=== PATIENT | female | born 1945 | race Caucasian/White ===

== ENCOUNTER 2020-05-24 11:01 | Outpatient (REF) | payer MEDICARE, SELFPAY ==
--- NOTE | 2020-05-24 | MR_ITS ---
EXAMINATION: MR BRAIN WITHOUT CONTRAST CLINICAL INFORMATION: Cortical blindness. Syncope. COMPARISON: None. TECHNIQUE: Multiplanar, multisequence imaging of the brain was performed without contrast. FINDINGS: There are chronic infarcts with laminar necrosis in the right occipital lobe. Mild gliosis and encephalomalacia evident as well. No acute ischemic changes are otherwise seen. There is encephalomalacia along the lateral aspect of the left temporal lobe cortical volume loss. The ventricles are normal in size. No mass effect or midline shift is seen. Mild to moderate chronic white matter microangiopathic changes are noted No extra-axial fluid collections are seen. The brainstem and cerebellum are normal. The gradient refocused acquisition demonstrates no pathologic magnetic susceptibility artifact to indicate underlying acute or chronic blood products. The craniovertebral junction, marrow signal, and midline structures are normal. The major intracranial flow voids at the level of the [place] are preserved. The dural venous sinus flow voids are maintained. The mastoid air cells are well aerated. There is mild mucosal thickening in the right maxillary antrum. MR/MR head/brain wo con IMPRESSION: No acute intracranial process. 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 Encephalomalacia in the lateral left temporal lobe which may be due to chronic infarction or prior traumatic brain injury; clinically correlate. Mild to moderate chronic white matter microangiopathy.
== END 2020-05-24 11:02 | disposition home or self-care (01) ==
LOC: HO.MRI 11:01
PROVIDERS: PCP Internal Medicine; Visit Provider Psychiatry & Neurology Neurology
DX: H47.619 Cortical blindness, unspecified side of brain (principal)
CPT/HCPCS: 70551

== ENCOUNTER → 2020-06-29 12:47 | Outpatient (REF) | payer MEDICARE, SELFPAY ==
--- NOTE | 2020-06-29 12:53 | HM_ITS ---
TEST PERFORMED: Cardiac event monitoring. INDICATION: Cerebral infarction, unspecified. REQUESTING PHYSICIAN: Dr. Chacon. ENROLLMENT PERIOD: 06/29/2020 to 07/29/2020 - 30 days. FINDINGS: In the above monitoring period, the underlying rhythm was sinus. The heart rate ranged from 99 beats per minute to 103 beats per minute. There were no significant arrhythmias noted during this time. There was also no patient symptoms selected. CONCLUSION: 30-day event monitoring shows sinus rhythm only without any other arrhythmias. Suleiman Ye MD HS/JORJE / [id number]
== END ==
LOC: HO.CARD 12:47
PROVIDERS: Visit Provider Psychiatry & Neurology Neurology
DX: I63.50 Cerebral infarction due to unspecified occlusion or stenosis of unspecified cerebral artery (principal)
CPT/HCPCS: 93270; 93272

== ENCOUNTER 2022-03-22 | Outpatient (REF) | payer SELFPAY ==
--- NOTE | 2022-03-27 09:49 | MHC.AU.HFU ---
Hearing Instrument Follow-Up- Binaural Date of Visit: 03/22/22 Right Ear: Phonak Virto Q50-312 HS SN: [id number] Color: [place] Repair Warranty: Loss and Damage Warranty: Battery Size: 312 Type of Wax Guard: None - Extended pipe organ technician tube Dispensed By: [facility] Date of Fittin12/10/2013 Left Ear: Phonak Virto Q50-312 HS SN: [id number] Color: [place] Repair Warranty: Loss and Damage Warranty: Battery Size: 312 Type of Wax Guard: None - Extended pipe organ technician tube Dispensed By: [facility] Date of Fittin12/10/2013 Follow-Up Summary: Ifeoma reported that she is not hearing as well with the hearing aids. Her hearing aids were cleaned and a listening check demonstrated that the hearing aids are in good working order. Discussed new hearing aids; however, Ifeoma opted to have her current hearing aids reprogrammed first. Her hearing aids were reprogrammed based on updated audiogram (see separate report). Ifeoma noted an improvement in office. Recommendations: Hearing instrument maintenance in 6 months, or sooner if needed. Please contact our clinic with any questions or concerns. Recommendations (Other): Consider new hearing aids due to age of current pair. Diagnosis Code(s): Primary Diagnosis: H90.3 Bilateral Sensorineural Hearing Loss Signature: Provider: Malgorzata Stanton, [facility]
== END 2022-03-22 00:01 ==
LOC: HO.HAP
PROVIDERS: Visit Provider Internal Medicine
DX: Z46.1 Encounter for fitting and adjustment of hearing aid (principal); H90.3 Sensorineural hearing loss, bilateral
CPT/HCPCS: 92593

== ENCOUNTER 2022-03-22 15:29 | Outpatient (REF) | payer MEDICARE, SELFPAY | END 2022-03-22 15:30 | disposition home or self-care (01) | LOC: HO.SH 15:29 | PROVIDERS: Visit Provider Internal Medicine | DX: Z01.118 Encounter for examination of ears and hearing with other abnormal findings (principal); H90.3 Sensorineural hearing loss, bilateral | CPT/HCPCS: 92557 ==

== ENCOUNTER 2022-09-08 13:16 | Emergency (ER) | payer MEDICARE, SELFPAY ==
--- NOTE | ~2022-09-08 | US_ITS ---
EXAMINATION: US VENOUS ULTRASOUND WITH DOPPLER LOWER EXTREMITY, LEFT CLINICAL INFORMATION: Pain. COMPARISON: None available. TECHNIQUE: Ultrasound of the deep veins is performed from the hip to the calf with compression sonography and color and pulse Doppler assessment. Spectral analysis with color-flow imaging is performed. FINDINGS: There is normal venous compression and respiratory variation and augmented flow. The visualized common femoral vein, superficial femoral vein, profunda femoral vein, popliteal vein, and the trifurcation region shows no evidence of deep venous thrombosis. Vascular flow in the peroneal vein and posterior tibial vein. There is no significant popliteal fossa cyst. Targeted ultrasound imaging in the area the calf pain demonstrates no focal abnormality. If the patient's symptoms persist, followup ultrasound in 5 days 7 days might be of value to exclude proximal propagation from a non-visualized calf vein. US/US venous duplex LE IMPRESSION: No DVT demonstrated in the left lower extremity.
--- NOTE | 2022-09-08 14:05 | ED_ITS ---
HPI - Extremity Injury (Lower) General Chief Complaint: Extremity Problem <ROBERT Solomon Last Filed: 09/08/22 14:12> Stated Complaint: ultrasound of Lower L Leg on calf <ROBERT Solomon Last Filed: 09/08/22 14:12> Time Seen by Provider: 09/08/22 15:20 <ROBERT Solomon - Last Filed: 09/08/22 14:12> Source: patient <ROBERT Isbell - Last Filed: 09/08/22 16:24> Mode of arrival: ambulatory <ROBERT Isbell Last Filed: 09/08/22 16:24> Limitations: no limitations <ROBERT Isbell Last Filed: 09/08/22 16:24> History of Present Illness HPI Narrative: 77yoF with a PMHx HLD, optical seizures c/o painful lump to L calf noted last night. Takes baby ASA. Flew to [place] in April although flight was less than 6 hours and she had a layover in [place]. denies injury/fall, SOB, hx clots, CP, Paresthesias, leg swelling or any other symptoms complaints or concerns at this time. <ROBERT Isbell Last Filed: 09/08/22 16:24> MD complaint: other ( left leg pain right above the calf near the knee joint) <ROBERT Isbell - Last Filed: 09/08/22 16:24> Onset (ago): day(s) ( since last night) <ROBERT Isbell Last Filed: 09/08/22 16:24> Related Data Home Medications: Previous Rx's Medication Instructions Recorded cyclobenzaprine 10 mg tablet 10 mg PO Q8H #14 tabs 09/08/22 <ROBERT Solomon Last Filed: 09/08/22 14:12> Allergies/Adverse Reactions: Allergies Allergy/AdvReac Type Severity Reaction Status Date / Time cephalexin Allergy Unknown Verified 09/08/22 14:11 chlordiazepoxide Allergy Rash Verified 09/08/22 14:13 [From Librax (with clidinium)] ciprofloxacin [From Cipro] Allergy Unknown Verified 09/08/22 14:12 clidinium Allergy Rash Verified 09/08/22 14:13 [From Librax (with clidinium)] latex Allergy Rash Verified 09/08/22 14:12 Penicillins Allergy Rash Verified 09/08/22 14:14 rofecoxib [From Vioxx] Allergy Unknown Verified 09/08/22 14:14 sulfamethoxazole Allergy Rash Verified 09/08/22 14:08 [From Bactrim] trimethoprim [From Bactrim] Allergy Rash Verified 09/08/22 14:08 midazolam [From Versed] AdvReac Unknown Verified 09/08/22 14:14 <ROBERT Solomon - Last Filed: 09/08/22 14:12> Review of Systems Review of Systems: Constitutional : No Weight loss, No Fever, No Chills, No Night Sweats, No Fatigue, No Malaise ENT/Mouth : No Hearing loss, No Ear Pain, No Nasal Congestion, No Sinus Pain, No Hoarseness, No sore throat, No Rhinorrhea, No Swallowing Difficulty Eyes: No Eye Pain, No Swelling, No Redness, No Foreign Body, No Discharge, No Vision Changes Cardiovascular : No Chest Pain, No SOB, No Dyspnea on Exertion, No Orthopnea, No Edema, No Palpitations Respiratory : No Cough, No Sputum, No Wheezing, No Smoke Exposure, No Dyspnea Gastrointestinal : No Nausea, No Vomiting, No Diarrhea, No Constipation, No abdominal Pain, No Hematochezia, No Melena Genitourinary : no irregular bleeding, No Dysuria, No Urinary Frequency, No Hematuria, No Urinary Incontinence, No Urgency, No Flank Pain, No Urinary Flow Changes, No Hesitancy Musculoskeletal : + left leg pain, No Myalgias, No Joint Swelling Skin : No Skin Lesions, No rash Neuro : No Weakness, No Numbness, No Paresthesias, No Loss of Consciousness, No Dizziness, No Headache Psych : No Anxiety/Panic, No Depression, No SI/HI/AH/VH, No Social Issues, Heme/Lymph: No Bruising, No Bleeding,No Lymphadenopathy Endocrine : No Polyuria, No Polydipsia, No Temperature Intolerance <ROBERT Isbell - Last Filed: 09/08/22 16:24> Yes all other systems are reviewed and are negative <ROBERT Isbell Last Filed: 09/08/22 16:24> ON LICENSE OF [facility] Past Medical History Attestation statement: The following information was validated with the patient. <ROBERT Isbell - Last Filed: 09/08/22 16:24> Source: old records reviewed, obtained from family and nursing notes reviewed <ROBERT Isbell - Last Filed: 09/08/22 16:24> Social History Social History: Social History Advance Directives: No Advance Directives Information Provided: Yes <ROBERT Solomon - Last Filed: 09/08/22 14:12> Physical Exam Vital Signs: Vital Signs: Last Vital Signs Temp 98 F 09/08/22 14:08 Pulse 112 H 09/08/22 14:08 Resp 18 09/08/22 14:08 BP 173/87 H 09/08/22 14:08 Pulse Ox 95 09/08/22 14:08 O2 Del Method Room Air 09/08/22 14:08 BMI result Body Mass Index 31.4 <ROBERT Solomon - Last Filed: 09/08/22 14:12> Vital Signs: Last Vital Signs Temp 98 F 09/08/22 14:08 Pulse 112 H 09/08/22 14:08 Resp 18 09/08/22 14:08 BP 173/87 H 09/08/22 14:08 Pulse Ox 95 09/08/22 14:08 O2 Del Method Room Air 09/08/22 14:08 BMI result Body Mass Index 31.4 Vital signs reviewed. Blood pressure 173/87. Pulse 112. Respiration normal. Oxygen normal. Temperature normal. <ROBERT Isbell - Last Filed: 09/08/22 16:24> Appearance: Alert. Oriented X3. No acute distress. Head: Normal external exam. Normocephalic. Atraumatic. Eyes: PERRLA. EOMI. Conjunctiva and sclera normal. Eyelids normal. ENT: EAC normal. TM's Normal. Pharynx normal. Uvula midline. Moist mucous membranes. No lesions/ulcerations or masses noted on the tongue. Normal voice. No trismus noted. No drooling noted. No muffled voice noted. Neck: Normal inspection. Neck supple. FROM. No adenopathy. Thyroid Normal. No meningeal signs. CVS: Normal heart rate and rhythm. Heart sound normal. Pulses normal throughout. No murmurs/rales/gallops. Respiratory: No respiratory distress. Painless inspiration. Breath sounds normal. No wheezes/rales/rhonchi noted. Chest nontender. No accessory muscle usage noted or decreased air movement noted. Abdomen: Soft and nontender. Back: Full range of motion noted. Nontender. Skin: Skin warm and dry. Normal skin color. Normal skin turgor. No rashes/lesions/lacerations noted. Extremities: patient with mild tenderness palpation to the medial aspect of the left knee/left lower leg right above the calf. No actual calf tenderness is noted. No lumps or lesions noted. No palpable cord. Negative Meng's sign. no lower extremity edema is noted. no erythema / fluctuance/ induration or signs of infection. Otherwise all other Extremities exhibit normal range of motion and nontender. Neuro: Oriented X 3. No motor deficit. No sensory deficit. Reflexes normal. Normal steady gait. No focal neuro deficits noted. CN's II-XII intact bilaterally? Vascular: + radial pulses. Normal cap refill. No cyanosis noted to upper extremity nails <ROBERT Isbell - Last Filed: 09/08/22 16:24> Course Course Course Narrative: RME: 77 yo F w/PMHx HLD, optical seizures c/o painful lump to L calf noted last night. Takes baby ASA. Flew to [place] in April. denies injury/fall, SOB, hx clots +small palpable lump to L calf. +b/l LE pitting edema. no erythema/warmth Venous duplex US ordered Full HPI, ROS and PE to be performed by primary ED provider. <ROBERT Solomon - Last Filed: 09/08/22 14:12> Reevaluation(s) Reevaluation #1: Patient presenting with left lower leg pain behind the knee right above the calf that has been present since last night. Reports recent travel to [place] in April where she had a layover in the flight was less than 6 hours. No history of DVTs. She takes a baby aspirin daily. Denies any chest pain or shortness of breath. no signs of infection. Patient most likely muscular skeletal strain. Not consistent with obvious DVT. Not consistent with septic joint. Not consistent with fracture. Ultrasound negative for any acute processes. Therefore at this time will DC home with instructions return if any new or worsening symptoms follow up with primary care provider. Patient with at bedside understand agree this plan. <ROBERT Isbell Last Filed: 09/08/22 16:24> Time: 16:22 <ROBERT Isbell - Last Filed: 09/08/22 16:24> Medical Decision Making Independent Interpretation I performed an independent interpretation of an: Ultrasound ( Ultrasound reviewed by myself negative for acute DVT or any other acute processes agreeable with radiologist report) <ROBERT Isbell Last Filed: 09/08/22 16:24> Radiology Impression Discussion of test interpretation with radiology: I have reviewed the radiologist's reading. <ROBERT Isbell Last Filed: 09/08/22 16:24> Radiologist Impression: FINDINGS: There is normal venous compression and respiratory variation and augmented flow. The visualized common femoral vein, superficial femoral vein, profunda femoral vein, popliteal vein, and the trifurcation region shows no evidence of deep venous thrombosis. Vascular flow in the peroneal vein and posterior tibial vein. There is no significant popliteal fossa cyst. Targeted ultrasound imaging in the area the calf pain demonstrates no focal abnormality. If the patient's symptoms persist, followup ultrasound in 5 days 7 days might be of value to exclude proximal propagation from a non-visualized calf vein. US/US venous duplex LE LT IMPRESSION: No DVT demonstrated in the left lower extremity. <ROBERT Isbell - Last Filed: 09/08/22 16:24> Independent Historian Clinical information obtained from an independent historian. History obtained from or confirmed by: Spouse <ROBERT Isbell Last Filed: 09/08/22 16:24> Discharge Plan Discharge Clinical Impression: Muscle strain of left lower extremity <ROBERT Solomon Last Filed: 09/08/22 14:12> Patient Disposition: Home, Self-Care <ROBERT Solomon Last Filed: 09/08/22 14:12> Instructions: Muscle Strain (ED) <ROBERT Solomon Last Filed: 09/08/22 14:12> Prescriptions: New cyclobenzaprine 10 mg tablet 10 mg PO Q8H Qty: 14 0RF <ROBERT Solomon Last Filed: 09/08/22 14:12> Referrals: Sterling Templeton III, MD [Primary Care Provider] - 2 days <ROBERT Solomon - Last Filed: 09/08/22 14:12>
[2022-09-08 14:08] VITALS: BP 173/87; PULSE 112; RESP 18; TEMP 36.6; O2SAT 95; BMI 31.4
== END 2022-09-08 16:40 | disposition home or self-care (01) ==
PROVIDERS: Emergency Provider Emergency Medicine; PCP Internal Medicine
DX: S86.912A Strain of unspecified muscle(s) and tendon(s) at lower leg level, left leg, initial encounter (principal); X58.XXXA Exposure to other specified factors, initial encounter; M79.662 Pain in left lower leg; R60.0 Localized edema; Y93.9 Activity, unspecified; Y92.019 Unspecified place in single-family (private) house as the place of occurrence of the external cause; Y99.9 Unspecified external cause status
CPT/HCPCS: 93971; 99282; 99284

== ENCOUNTER 2023-07-06 09:27 | Outpatient (REF) | payer MEDICARE, SELFPAY | END 2023-07-06 09:28 | disposition home or self-care (01) | LOC: HO.SH 09:27 | PROVIDERS: Visit Provider Internal Medicine | DX: H90.3 Sensorineural hearing loss, bilateral (principal) | CPT/HCPCS: 92552; 92556 ==

== ENCOUNTER 2023-10-25 12:56 | Outpatient (REF) | payer SELFPAY ==
--- NOTE | 2023-10-26 08:49 | MHC.AU.HA1 ---
Hearing Aid Evaluation Date of Visit: 10/25/23 Historical Information: Description of Hearing: Right Ear: Within normal sloping to severe sensorineural hearing loss; Left Ear: Moderate sloping to severe sensorineural hearing loss Current personal amplification information: Phonak Virto Q50-312 [employer] fit in November 2013 Summary: Accompanied by , Manuel. Ready to pursue new hearing aids due to age of current pair. Looked into 3[place] insurance benefit but has opted to pursue hearing aids here instead. Knows benefit cannot be utilized here; it will be self-pay and likely not reimbursable. Discussed manufacturers, styles, and technology levels. One of Ifeoma's top priorities for her new hearing aids is rechargeability. Discussed pros and cons of changing manufacturers for custom rechargeable or changing styles to rechargeable RITE to stay with Phonak hearing aids. Ifeoma has used Eddie hearing aids in the past and ultimately opted to trial Eddie rechargeable custom hearing aids. Current hearing aids have extended relief manager tube, unsure why. Ifeoma okay with wax guards on new hearing aids. Ifeoma is still active, attending [employer] and the [employer] and socializing in groups with friends and family. Experiences difficulty hearing in majority of these listening environments and hoping new hearing aids will provide some improvement, while maintaining realistic expectations. Ifeoma also inquired about a TV streamer, which she may want to purchase in future, if needed. Hearing Aid Prescription: Based on the individual?s shared listening needs, communication environments, dexterity, desire for connectivity, and personal preferences, the following prescription for amplification has been made: Right ear: Make, Model, Color: InPlace AI 16 ITC-R Color: [place] Battery Size: Rechargeable Left ear: Left ear prescription to be same as Right Hearing Aid above: Make, Model, Color: InPlace AI 16 ITC-R Color: [place] Battery Size: Rechargeable Accessories/Assistive Technology: Credit Control Officer Plan of Care: Patient wishes to purchase hearing aids as prescribed Action Taken/Action Needed: Hearing Instrument Fitting to be scheduled when materials arrive Primary Diagnosis: H90.3 Bilateral Sensorineural Hearing Loss Signature: Provider: Malgorzata Stanton, [facility]
== END 2023-10-25 12:57 | disposition home or self-care (01) ==
LOC: HO.HAP 12:56
PROVIDERS: Visit Provider Internal Medicine
DX: Z46.1 Encounter for fitting and adjustment of hearing aid (principal); H90.3 Sensorineural hearing loss, bilateral
CPT/HCPCS: 92590

== ENCOUNTER 2024-01-17 12:44 | Outpatient (REF) | payer SELFPAY ==
--- NOTE | 2024-01-17 13:42 | MHC.AU.HA2 ---
Hearing Instrument Fitting- Adult- Binaural Date of Visit: 01/17/24 Hearing Instruments Dispensed: Right Ear: Make, Model, Color, Serial Number: Eddie RANGEL 16 ITC-R SN: [id number] Color: [place] [employer]anner Repair Warranty: 01/22/2027 Business Planner Loss and Damage Warranty: 01/22/2027 [facility] Service Plan: 01/17/2024 Battery Size: Rechargeable Type of Wax Guard: HearClear Left Ear: Wayne, Model, Color, Serial Number: Eddie RANGEL 16 ITC-R [id number] Color: [place] [employer] Planner Repair Warranty: 01/22/2027 Business Planner Loss and Damage Warranty: 01/22/2027 [facility] Service Plan: 01/17/2024 Battery Size: Rechargeable Type of Wax Guard: HearClear Accessories/Assistive Technology: [employer] Custom Library Science Instructor SN: [id number] Summary of Fitting: Accompanied by , Manuel. Ran feedback analyzer and real ear measures. Comfortable at real ear settings. New hearing aids louder and clearer than old hearing aids. Physical fit felt bigger/calderon in ears but reportedly did not move out of ears while talking or with jaw movement - will monitor. Discussed care, use, and rechargeability including manually turning on/off, changing wax guard, and VC use. As a long-time hearing aid user, Ifeoma was otherwise familiar to general maintenance. Did not discuss bluetooth at this time. *Briefly discussed new Phonak rechargeable customs given discussion at consult (see previous note); however, not available to order yet. Ifeoma opted to move forward with fitting, at least to trial the Eddie hearing aids but would like to be contacted when Phonak custom rechargeables are available. Recommendations: A hearing instrument follow-up was scheduled. Diagnosis Code(s): Primary Diagnosis: H90.3 Bilateral Sensorineural Hearing Loss Signature: Provider: Malgorzata Stanton, [facility]
== END 2024-01-17 12:45 | disposition home or self-care (01) ==
LOC: HO.HAP 12:44
PROVIDERS: Visit Provider Internal Medicine
DX: Z46.1 Encounter for fitting and adjustment of hearing aid (principal); H90.3 Sensorineural hearing loss, bilateral
CPT/HCPCS: 92700; V5259; V5299

== ENCOUNTER 2024-02-05 14:03 | Outpatient (REF) | payer SELFPAY ==
--- NOTE | 2024-02-05 16:43 | MHC.AU.HA3 ---
Hearing Instrument Follow-Up- Binaural Date of Visit: 02/05/24 Right Ear: Make, Model, Color, Serial Number: Eddie RANGEL 16 ITC-R SN: [id number] Color: [place] Bag Machine Operator Repair Warranty: 01/22/2027 Bag Machine Operator Loss and Damage Warranty: 01/22/2027 [facility] Service Plan: 01/17/2024 Battery Size: Rechargeable Type of Wax Guard: HearClear Dispensed By: [facility] Date of Fittin01/17/2024 Left Ear: Make, Model, Color, Serial Number: Eddie RANGEL 16 ITC-R [id number] Color: [place] Bag Machine Operator Repair Warranty: 01/22/2027 Bag Machine Operator Loss and Damage Warranty: 01/22/2027 [facility] Service Plan: 01/17/2024 Battery Size: Rechargeable Type of Wax Guard: HearClear Dispensed By: [facility] Date of Fittin01/17/2024 Follow-Up Summary: Accompanied by , Manuel. Multiple concerns with new HAs. 1. Too loose, constantly falling out, need to push back in. Right worse than left. 2. Sound quality muffled; No improvement compared to old HAs, particularly in catholic. reports needing to repeat more often with new HAs. Ifeoma expected it to be better. 3. Attempted to change wax guard, assuming it would help with muffled sound quality but mistakenly put wax guards in microphone ports, which she noted made sound worse. Impressions taken, bilaterally, without incident. Sent to [facility] with HAs for remake. Will address programming/rerun real ear and reinstruct on changing wax guards at next appointment when HAs are back from being remade. Called [facility] customer service to try to extend trial/return period. Per Tian, customer service consultant, currently ends on 03/23/2024, need to request extension through accounts payables clerk. Emailed Venancio Kirk at [facility] to request extension of trial period. Recommendations: Patient will be contacted when materials have arrived. Diagnosis Code(s): Primary Diagnosis: H90.3 Bilateral Sensorineural Hearing Loss Signature: Provider: Malgorzata Stanton, [facility]
== END 2024-02-05 14:04 | disposition home or self-care (01) ==
LOC: HO.HAP 14:03
PROVIDERS: Visit Provider Internal Medicine
DX: Z13.89 Encounter for screening for other disorder (principal)

== ENCOUNTER 2024-02-19 15:28 | Outpatient (REF) | payer SELFPAY | END 2024-02-19 15:29 | disposition home or self-care (01) | LOC: HO.HAP 15:28 | PROVIDERS: Visit Provider Internal Medicine | DX: Z13.89 Encounter for screening for other disorder (principal) ==

== ENCOUNTER 2024-03-04 14:03 | Outpatient (REF) | payer SELFPAY ==
--- NOTE | 2024-03-04 16:07 | MHC.AU.HA3 ---
Hearing Instrument Follow-Up- Binaural Date of Visit: 03/04/24 Right Ear: Wayne, Model, Color, Serial Number: Eddie RANGEL 16 ITC-R SN: [id number] Color: [place] Oyster Opener Repair Warranty: 01/22/2027 Oyster Opener Loss and Damage Warranty: 01/22/2027 [facility] Service Plan: 01/16/2027 Battery Size: Rechargeable Type of Wax Guard: HearClear Dispensed By: [facility] Date of Fittin01/17/2024 Left Ear: Wayne, Model, Color, Serial Number: Eddie RANGEL 16 ITC-R [id number] Color: [place] Oyster Opener Repair Warranty: 01/22/2027 [place]yster Opener Loss and Damage Warranty: 01/22/2027 [facility] Service Plan: 01/16/2027 Battery Size: Rechargeable Type of Wax Guard: HearClear Dispensed By: [facility] Date of Fittin01/17/2024 Follow-Up Summary: Accompanied by , Manuel. Physical fit better after remake; however, still does not notice significant benefit compared to old HAs. Performed aided speech discrimination in [place] at 55 dB HL, scored 80% with new Eddie HAs, 88% with old Phonak HAs. Seemed much quicker to respond with Phonak, felt more confident in responses. Ran real ear on old Phonak HAs compared to new Eddie HAs - frequency responses almost identical. Increased high frequencies and overall gain in Eddie HAs, more so in left, at Ifeoma's request. Opted to schedule one additional follow up, will make decision about how to proceed at next appointment. Previous email with Venancio Kirk at [facility] extended trial period until 04/22/2024. Recommendations: An additional follow-up was scheduled to monitor progress. Diagnosis Code(s): Primary Diagnosis: H90.3 Bilateral Sensorineural Hearing Loss Signature: Provider: Malgorzata Stanton, [facility]
== END 2024-03-04 14:04 | disposition home or self-care (01) ==
LOC: HO.HAP 14:03
PROVIDERS: Visit Provider Internal Medicine
DX: Z13.89 Encounter for screening for other disorder (principal)

== ENCOUNTER 2024-04-01 14:27 | Outpatient (REF) | payer SELFPAY ==
--- OUTSIDE RECORDS SUMMARY | 2024-04-08 14:56 | XMS_ITS ---
Author Organization [facility] Address [address] [facility] [place] [address] Care Team Providers Care Post Doctoral Researcher Name Role Phone Chip Templeton MD Primary Care Provider Unavailabl e Black, Juliette Unavailable [phone] Allergies Allergen (clinical drug ingredient) Drug/Non Drug Allergy documented on EMR Reaction Allergy Type Onset Date Status amoxicillin Amoxicillin diarrhea Drug Allergy Act julissa sulfamethoxazole / trimethoprim Bactrim diarrhea Drug Allergy Active cephalexin Cephalexin diarrhea Drug Allergy Activ e ciprofloxacin Cipro diarrhea Drug Allergy Act julissa Levaquin diarrhea Drug Allergy Active Fxedr-Vqoim-Pfvms yx-Pramoxine swelling Drug Allergy Active Midazolam Unknown Drug Allergy Active Adhesive itchy, redness Allergy Activ e Latex Latex itchy, redness Allergy Activ e REASON FOR VISIT Painful nail(s) aggrevated by shoes and causing difficulty standing/walking., Wart(s) Medications Medication SIG (Take, Route, Frequency, Duration) Notes Start Date End Date Status Topiramate 25 MG 1 tablet Orally Once a day for 30 day(s) Not-Taking Noritate Not-Taking Luxiq Not-Taking Li Allergy Not- Taking Flomax Not-Taking Baby Aspirin Active Dovonex PRN Active Multivitamins as directed Orally Active MiraLax PRN Active ZyrTEC Allergy PRN Activ e Losartan Potassium 25 MG 1 tablet Orally Once a day Active Cyclobenzaprine HCl 10 MG 1 tablet at be dtime as needed Orally Once a day PRN Active Atorvastatin Calcium 10 MG 1 tablet Oral ly Once a day for 30 day(s) Active Social History Tobacco Use: Social History Observation Description Date Details (start date - stop date) Never Smoker NA - NA Tobacco Use/Smoking Question Answer Notes Are you a: nonsmoker Additional Findings: Tobacco Non-User Current no n-smoker Tobacco use other than smoking: Question Answer Notes Are you an other tobacco user? No Vital Signs Height 5ft in 01/21/2024 Weight 175 lbs 01/21/2024 BMI 34.17 kg/m2 01/21/2024 Blood pressure systolic 129 mm Hg 01/21/20 24 Blood pressure diastolic 66 mm Hg 024 Procedures Procedure Date Ordered Date Performed Result Body Sit e 46794-OIHGGTS NAIL, 6 OR MORE 01/21/2024 N/A 18791-Iyiu Destruction, 1-14 01/21/2024 N/A Encounters Encounter Location Date Provider Diagnosis [facility] [address] [address] 01/21/2024 Juliette Welsh Other viral warts B07.8 ; Tinea unguium B35.1 ; Pain in left foot M79.672 ; Pain in right toe(s) M79.674 and Pain in left toe(s) M79.675 Assessments Encounter Date Diagnosis (ICD Code) Assessment Notes Treatment Notes Treatment Clinical Notes Section Notes 01/21/2024 Other viral warts (ICD-10 - B07.8) 01/21/2024 Tinea unguium (ICD-10 - B35.1) 01/21/2024 Pain in left foot (ICD-10 - M79.672) 01/21/2024 Pain in right toe(s) (ICD-10 - M79.674) 01/21/2024 Pain in left toe(s) (ICD-10 - M79.675) Plan Of Treatment Pending Test Test Name Order Date [id number]-KABMGEA NAIL, 6 OR MORE 01/21/2024 63154-Eevg Destruction, 1-14 01/21/2024 Next Appt Details Follow Up: prn, Reason: Provider Name:Juliette De Oliveira Blaise , 05/05/2024 03:45:00 PM, [address] [place] [address], [id number], Procedure Notes * Category Sub-Category Detail Notes Wart Treatment Procedure Verrucae(s) were debrided to pin-point bleeding margins with sterile surgical blade, silver nitrate chemocautery applied, recomm. immune-boosting meds such as zinc, recomm. follow up with topical chemosurgical agents, Pt STILL CONT, defers any other forms of tx (95217) Debride Nail 6-10 Nail debridement Nail debridem ent performed extensively to reduce/remove overall nail length and girth, subungual debris, and necrotic tissue, by manual and electrical means with use of a nail nipper and/or dremel, to more viable healthy nail plate or bed tissue 6-10. Silver nitrate used for any petechial bleeding as necessary. Patient STILL, chooses, no pharmaceutical tx (78822) Progress Notes * Ifeoma GA MDOB:1944 (78 yo F)Acc No.[id number]:01/21/2024 Progress Note Patient:?Ifeoma Ga M Provider:?Juliette Welsh DPM :1945???Age:78 Y???Sex:Female D ate:01/21/2024 Address:[address] [place] [address], [id number] Pcp:Chip Templeton MD Subjective: * Chief Complaints: * ??? Painful nail(s) aggrevat ed by shoes and causing difficulty standing/walking.Wart(s) * HPI: ???Painful Nails:?Pt States Last PCP Visit:?Date:?10/05/2023 ???Wart:?Pt States Last PCP Visit:?Date:?10/05/2023 * Medical History:? * Surgical History:?foot surge ry gall stones hemorrhoidectomy 2004tonsillectomy eye tearduct surgery 01/2016eye surgery 01/2018 * Hospitalization/Major Diagno stic Procedure:?Patient went to [facility] ER for chest pain[facility] 04/27/2014[facility]- Passed out and hit head on floor- concusion- neurologist- several strokes 04/12/2020[facility]- lump behind leg 09/08/22 * Family History:?Mother: dece ased, poor circulation, diagnosed with Other specified conditions influencing health status.?Father: , heart attack, diagnosed with Unspecified heart disease.?Paternal aunt: diabetes, stroke, diagnosed with Diabetic - NIDDM, Unspecified heart disease.?Siblings: , hypertension, diagnosed with Unspecified essential hypertension, Other malignant neoplasm of unspecified site.?Paternal Grand Mother: diagnosed with Family history of arthritis.? * Social History:?Tobacco Use:?Tobacco Use/Smoking?Are you a:?nonsmoker ?Additional Findings: Tobacco Non-User?Current non-smoker ?Tobacco use other than smoking?Are you an other tobacco user??No ???Miscellaneous:?no Caffeine, decaff coffee, diet soda , 1-2 cups per day. ?Children: yes, 3. ?Exercise: yes, PT, walking. ?Marital status: . ?Occupation: Retired. * Medications:?TakingLosartan Potassium 25 MG Tablet 1 tablet Orally Once a dayCyclobenzaprine HCl 10 MG Tablet 1 tablet at bedtime as needed Orally Once a day, Notes: PRNAtorvastatin Calcium 10 MG Tablet 1 tablet Orally Once a dayBaby Aspirin Dovonex , Notes: PRNMultivitamins Capsule as directed Orally MiraLax , Notes: PRNZyrTEC Allergy , Notes: PRNTaking Losartan Potassium 25 MG Tablet 1 tablet Orally Once a dayTaking Cyclobenzaprine HCl 10 MG Tablet 1 tablet at bedtime as needed Orally Once a day, Notes: PRNTaking Atorvastatin Calcium 10 MG Tablet 1 tablet Orally Once a dayTaking Baby Aspirin Taking Dovonex , Notes: PRNTaking Multivitamins Capsule as directed Orally Taking MiraLax , Notes: PRNTaking ZyrTEC Allergy , Notes: PRNNot-Taking/PRNTopiramate 25 MG Tablet 1 tablet Orally Once a dayNoritate Luxiq Li Allergy Flomax Medication List reviewed and reconciled with the patientNot-Taking/PRN Topiramate 25 MG Tablet 1 tablet Orally Once a dayNot-Taking/PRN Noritate Not-Taking/PRN Luxiq Not-Taking/PRN Li Allergy Not-Taking/PRN Flomax Medication List reviewed and reconciled with the patient * Allergies:?Cephalexin: diarr heaCipro: diarrheaLevaquin: vxhtmjpkJzzpxgwscYeqxz-Syxpa-Cgjrapl-Pramoxine: swellingBactrim: diarrheaAmoxicillin: diarrheaAdhesive: itchy, redness - AllergyLatex: itchy, redness - Allergyyes[Allergies Verified] Objective: * Vitals:?Ht: 5ft, Wt: 175, BM I: 34.17, Shoe size: 6.5W, BP: 129/66 mm Hg, Ht-cm: 152.4 cm, Wt-k.38 kg. * Examination: ???Dermatologic: ?VERRUCA:?two, round, raised, flat-topped, petechial bleeding papulae(s), with cauliflower appearance and interrruption of skin lines, with pain to both direct and lateral compression, and size estimated at 1-2mm, plantar Heel, LEFT.?Nails: ?NAILS are:?elongated,overgrown,dystrophic,greater than 3mm thick,discolored and friable with crumbly malodorous subungual debris, with pain on palpation, 1-5 B/L.? Assessment: * Assessment: 1.?Other viral warts - B07.8 (Primary)?2.?Tinea unguium - B35.1?3.?Pain in left foot - M79.672?4.?Pain in right toe(s) - M79.674?5.?Pain in left toe(s) - M79.675? Plan: * Treatment: 2.?Tinea unguium?Procedure: 17663-LHMXJYP NAIL, 6 OR MORE * Procedures:?Debride Nail 6-10:?Nail debridement?Nail debridement performed extensively to reduce/remove overall nail length and girth, subungual debris, and necrotic tissue, by manual and electrical means with use of a nail nipper and/or dremel, to more viable healthy nail plate or bed tissue 6-10. Silver nitrate used for any petechial bleeding as necessary. Patient STILL, chooses, no pharmaceutical tx (61341).?Wart Treatment:?Procedure?Verrucae(s) were debrided to pin-point bleeding margins with sterile surgical blade, silver nitrate chemocautery applied, recomm. immune-boosting meds such as zinc, recomm. follow up with topical chemosurgical agents, Pt STILL CONT, defers any other forms of tx (64991).? * Procedure Codes:?32980 DEBRI DE NAIL, 6 OR MORE, Modifiers: XS 99865 Wart Destruction, 1-14, Modifiers: XS * Follow Up:?prn * Images: * Sign off status: Completed true * Provider:?Julitete Welsh DPM Date:?2023 Generated for Rosy morel/Nevaeh/eTransmitting on:?04/08/2024 02:56 PM EST History and Physical Notes * HPI (History of Present Illness) Category Sub-Category Detail Notes Category Not es Painful Nails Pt States Last PCP Visit: Date:: 10/05/2023 Wart Pt States Last PCP Visit: Date:: 10/05/2023 Examination Category Sub-Category Detail Notes Category Not es Neurological SENSORY: BABINSKI REFLEX: TINEL'S COMPRESSION: DEEP TENDON REFLEXES: Dermatologic SKIN FINDINGS: ULCER: VERRUCA: two, round, raised, flat-topped, petechial bleeding papulae(s), with cauliflower appearance and interrruption of skin lines, with pain to both direct and lateral compression, and size estimated at 1-2mm, plantar Heel, LEFT Nails NAILS are: elongated,overgr own,dystrophic,greater than 3mm thick,discolored and friable with crumbly malodorous subungual debris, with pain on palpation, 1-5 B/L
--- OUTSIDE RECORDS SUMMARY | 2024-04-08 14:56 | XMS_ITS ---
Author Organization [facility] Address [address] [facility] [place] [address] Care Team Providers Care Nnps Name Role Phone Chip Templeton MD Primary Care Provider Unavailabl e Black, Juliette Unavailable [phone] Allergies Allergen (clinical drug ingredient) Drug/Non Drug Allergy documented on EMR Reaction Allergy Type Onset Date Status amoxicillin Amoxicillin diarrhea Drug Allergy Act julissa sulfamethoxazole / trimethoprim Bactrim diarrhea Drug Allergy Active cephalexin Cephalexin diarrhea Drug Allergy Activ e ciprofloxacin Cipro diarrhea Drug Allergy Act julissa Levaquin diarrhea Drug Allergy Active Dmnou-Yqucu-Qielc yx-Pramoxine swelling Drug Allergy Active Midazolam Unknown Drug Allergy Active Adhesive itchy, redness Allergy Activ e Latex Latex itchy, redness Allergy Activ e REASON FOR VISIT Heel pain, Painful nail(s) aggrevated by shoes and causing difficulty standing/walking., Wart(s) Medications Medication SIG (Take, Route, Frequency, Duration) Notes Start Date End Date Status Topiramate 25 MG 1 tablet Orally Once a day for 30 day(s) Not-Taking Luxiq Not-Taking Noritate Not-Taking Flomax Not-Taking Li Allergy Not- Taking ZyrTEC Allergy PRN Activ e MiraLax PRN Active Multivitamins as directed Orally Active Dovonex PRN Active Baby Aspirin Active Cyclobenzaprine HCl 10 MG 1 tablet [...] Additional Findings: Tobacco Non-User Current no n-smoker Alcohol Screen Question Answer Notes Did you have a drink containing alcohol in the p ast year? No Points 0 Interpretation Negative Tobacco use other than smoking: Question Answer Notes Are you an other tobacco user? No Vital Signs Height 5ft in 06/28/2023 Weight 170 lbs 06/28/2023 BMI 33.2 kg/m2 06/28/2023 Blood pressure systolic 121 mm Hg 06/28/19 24 Blood pressure diastolic 60 mm Hg 024 Procedures Procedure Date Ordered Date Performed Result Body Sit e 90507-VIKEQAL NAIL, 6 OR MORE 06/28/2023 N/A 74501-Blun Destruction, 1-14 06/28/2023 N/A Encounters Encounter Location Date Provider Diagnosis [facility] [address] [place] [address] 06/28/2023 Juliette Black Other viral warts B07.8 ; Plantar fascial fibromatosis M72.2 ; Tinea unguium B35.1 ; Pain in left foot M79.672 ; Pain in right toe(s) M79.674 ; Pain in left toe(s) M79.675 ; Other myositis, right ankle and foot M60.871 and Other bursitis, not elsewhere classified, right ankle and foot M71.571 Assessments Encounter Date Diagnosis (ICD Code) Assessment Notes Treatment Notes Treatment Clinical Notes Section Notes 06/28/2023 Other viral warts (ICD-10 - B07.8) 06/28/2023 Plantar fascial fibromatosis (ICD-10 - M72.2) Response to treatment - Improvement 06/28/2023 Tinea unguium (ICD-10 - B35.1) 06/28/2023 Pain in left foot (ICD-10 - M79.672) 06/28/2023 Pain in right toe(s) (ICD-10 - M79.674) 06/28/2023 Pain in left toe(s) (ICD-10 - M79.675) 06/28/2023 Other myositis, right ankle and foot (ICD-10 - M60.871) 06/28/2023 Other bursitis, not elsewhere classified, right ankle and foot (ICD-10 - M71.571) Plan Of Treatment Pending Test Test Name Order Date 16341-WGUQOES NAIL, 6 OR MORE 06/28/2023 92085-Pavx Destruction, 1-14 06/28/2023 Next Appt Details Follow Up: prn, Reason: Provider Name:Juliette Welsh , 05/05/2024 03:45:00 PM, [address] [place], [address], Procedure Notes * Category Sub-Category Detail Notes Wart Treatment Procedure Verrucae(s) were debrided to pin-point bleeding margins with sterile surgical blade, silver nitrate chemocautery applied, recomm. immune-boosting meds such as zinc, recomm. follow up with topical chemosurgical agents, Pt STILL defers any other forms of tx (09886) Debride Nail 6-10 Nail debridement Nail debridem ent performed extensively to reduce/remove overall nail length and girth, subungual debris, and necrotic tissue, by manual and electrical means with use of a nail nipper and/or dremel, to more viable healthy nail plate or bed tissue 6-10. Silver nitrate used for any petechial bleeding as necessary. Patient chooses, no pharmaceutical tx (22181) Progress Notes * Ifeoma GA MDOB:1944 (78 yo F)Acc No.[id number]:06/28/2023 Progress Note Patient:?Ifeoma Ga M Provider:?Juliette WelshTONA :1945???Age:78 Y???Sex:Female D ate:06/28/2023 Address:[address] [place] [address] [id number] Pcp:Chip Templeton MD Subjective: * Chief Complaints: * ???Heel pain Painful nail(s) aggrevated by shoes and causing difficulty standing/walking.Wart(s) * HPI: ???Painful Nails:?Pt States Last PCP Visit:?Date:?04/02/2023 ???Wart:?Pt States Last PCP Visit:?Date:?04/02/2023 ???Heel pain:?Nature:?stiffness, tenderness.?Location:?RIGHT.?Duration:?several months .?Onset/Cause:?unknown, denies trauma.?Course:?, at approximately 60 %.?Aggrevated:?walking first thing in the morning/after rest, worse at end of the day.?Treatments:?medication (MOTRIN_ ) rest,night splint , stretching , physical therapy , Pt relates non compliance with recommended treatment plan of supportive shoes.?Severity/Quality:?moderate.? * ROS:?General/Constitutional:?Nausea?denies.?Vomiting?denies.?Hunger Thirst?denies.?Loss appetite?denies.?Chills?denies.?Fatigue?denies.?Fever?denies.?Night Sweats?denies.?Unexplained weight loss?denies.?Ophthalmologic:?Blurred vision?denies.?Red eye?denies.?HEENTM:?Dentures?denies.?Dizziness?denies.?Glasses/contacts?admits.?Retinopathy?de nies.?Blurred/double vision?denies.?TMJ?denies.?Discharge/drainage?denies.?Implants?denies.?Hard of hearing denies.?Difficulty chewing/swallowing/speaking?denies.?Nose bleeds?denies.?Sore mouth?denies.?Swollen glands?denies.?Respiratory:?On Oxygen?denies.?Pneumonia/pleurisy?denies.?Bronchitis?denies.?Emphysema?denies.?C oughing?denies.?Cough blood?denies.?Shortness of breath?denies.?Wheezing?denies.?Cardiovascular:?Pacemaker?denies.?MVP?denies.?WPW?denies.?CHF?denies.?Heart attack?denies.?Septal defect?denies.?Rapid beat?denies.?Chest pain ?denies.?Atrial Fib.?denies.?Murmur/Palpitations?denies.?Gastrointestinal:?Hemorrhoids?denies.?Stomach/Abdominal pain?denies.?Dark blood stool?denies.?Irritable bowel ?denies.?Constipation?denies.?Diarrhea?denies.?Vomiting?denies.?Hematology:?Swelling?denies.?Bruising?denies.?Bleeding problem?denies.?Genitourinary:?Blood urine?denies.?Frequent/Painfu/urination/bladder control?denies.?Kidney stones?denies.?Infection (UTI)?denies.?Nephropathy?denies.?Musculoskeletal:?Hammertoes?denies.?Bunions?denies.?Scoliosis/kyphosis?denies.?Muscle cramps / walking?denies.?Generalized aches and pains?admits.?Weakness?denies.?Integ.:?Dave?denies.?Scars?denies.?Corns/calluses?admits.?Ingrown nails?admits.?Painful nails?denies.?Rashes?denies.?Neurologic:?Difficulty sleeping?denies.?Bipolar?denies.?Brain disorder?denies.?Balance trouble?denies.?Confusion?denies.?Fainting/blackouts?denies.?Headache?denies.?Tr emors?denies.? * Medical History:? * Surgical History:?foot surge ry gall stones hemorrhoidectomy 2004tonsillectomy eye tearduct surgery 01/2016eye surgery 01/2018 * Hospitalization/Major Diagno stic Procedure:?Patient went to [facility] ER for chest pain. 04/27/2014[facility]- Passed out and hit head on floor- concusion- neurologist- several strokes 04/12/2020[facility]- lump behind leg 09/08/22 * Family [...] than smoking?Are you an other tobacco user??No ???Drugs/Alcohol:?Drugs?Have you used drugs other than those for medical reasons in the past 12 months??No ?Alcohol Screen?Did you have a drink containing alcohol in the past year??No ?Points?0 ?Interpretation?Negative ???Miscellaneous:?no Caffeine, decaff coffee, diet soda , 1-2 cups per day. ?Children: yes, 3. ?no Exercise. ?Marital status: . ?Occupation: Retired. * Medications:?TakingCyclobenz aprine HCl 10 MG Tablet 1 tablet at bedtime as needed Orally Once a day, Notes: PRNAtorvastatin Calcium 10 MG Tablet 1 tablet Orally Once a dayBaby Aspirin Dovonex , Notes: PRNMultivitamins Capsule as directed Orally MiraLax , Notes: PRNZyrTEC Allergy , Notes: PRNTaking Cyclobenzaprine HCl 10 MG Tablet 1 tablet [...] the patient * Allergies:?Cephalexin: diarr heaCipro: diarrheaLevaquin: giongtzxOvcsxnrvgShqkv-Ewfoz-Vwshfjl-Pramoxine: swellingBactrim: diarrheaAmoxicillin: diarrheaAdhesive: itchy, redness - AllergyLatex: itchy, redness - Allergyyes[Allergies Verified] Objective: * Vitals:?Ht: 5ft, Wt: 170, BM I: 33.2, Shoe size: 6.5W, BP: 121/60 mm Hg, Ht-cm: 152.4 cm, Wt-k.11 kg. * Examination: ???Vascular: ?DP PULSES:?2/4, B/L.?PT PULSES:?2/4, B/L.?CAPILLARY FILL TIME:?3 secs. per digit, B/L.?Dermatologic: ?SKIN FINDINGS:?, Skin exam reveals normal texture, elasticity, and tugor. There are no masses. The interspaces are clear.?VERRUCA:?single , round, raised, flat-topped, petechial bleeding papulae(s), with cauliflower appearance and interrruption of skin lines, with pain to both direct and lateral compression, and size estimated at 2mm, plantar Heel, LEFT.?Heel Pain: ?INSPECTION REVEALS:?POP Plantar Fascia med. and central bands, intrinsic musc., infracalcaneal bursa, and med calc tubercle . No pain: posterior/superior heel, achilles bursa/tendon, sinus tarsi, peroneals; no limited STJ ROM, calor, or eccymosis. Pain on Heel Compression absent RIGHT foot , States approximately 60% LESS.?Nails: ?NAILS are:?elongated,overgrown,dystrophic,greater than 3mm thick,discolored and friable with crumbly malodorous subungual debris, with pain on palpation, 1-5 B/L.? 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 Plan: * Treatment: 2.?Tinea unguium?Procedure: 37304-JQGDNYK NAIL, 6 OR MORE * Procedures:?Debride Nail 6-10:?Nail debridement?Nail debridement performed extensively to reduce/remove overall nail length and girth, subungual debris, and necrotic tissue, by manual and electrical means with use of a nail nipper and/or dremel, to more viable healthy nail plate or bed tissue 6-10. Silver nitrate used for any petechial bleeding as necessary. Patient chooses, no pharmaceutical tx (31333).?Wart Treatment:?Procedure?Verrucae(s) were debrided to pin-point bleeding margins with sterile surgical blade, silver nitrate chemocautery applied, recomm. immune-boosting meds such as zinc, recomm. follow up with topical chemosurgical agents, Pt STILL defers any other forms of tx (37338).? * Procedure Codes:?42355 DEBRI DE NAIL, 6 OR MORE, Modifiers: XS 96727 Wart Destruction, 1-14, Modifiers: XS * Preventive Medicine:? ??Counseling:?Discussion:?-12: Office or other outpatient visit for the evaluation and management of an established patient, which required a medically appropriate history and/or examination and STRAIGHTFORWARD level of MEDICAL DECISION MAKING, 1 SELF-LIMITED OR MINOR PROBLEM, MINIMAL- NO AMOUNT/COMPLEXITY OF DATA TO BE REVIEWED/ANALYZED, AND MINIMAL RISK OF COMPLICATION/MORBIDITY. The visit on the day of the encounter encompassed interpreting the data and educating the patient as to the nature of their condition, treatment options available according to their individual PMH, meds, allergies, and overall health/living conditions, as well as any potential risks or complications that may occur from a failure to adhere to, and participate in, the recommended course of therapy. The discussion included a complete verbal, and/or written explanation of the examination results, any x-rays taken, the proposed diagnosis, and outline of the treatment plan. A schedule for future care needs was also explained. The patient verbalized an understanding of the instructions at this time and agreed to be an active participant in their treatment. If the patient should think of any questions or concerns after the visit, I have encouraged the patient to call the office, Given recent successful results to treatment, even with pt not being completely complaint it is recomm. That is continued with more effort on compliance with foot wear.The patient wishes to continue with the present treatment plan for their condition.? * Follow Up:?prn * Images: * Sign off status: Completed true * Provider:?Juliette Welsh DPM Date:?2023 Generated for Rosy morel/Nevaeh/Shay on:?04/08/2024 02:56 PM EST History and Physical Notes * HPI (History of Present Illness) Category Sub-Category Detail Notes Category Not es Heel pain Duration: several months Nature: stiffness, tendernes s Severity/Quality: moderate Location: RIGHT Onset/Cause: unknown, denies trau ma Aggravated: walking first thing in the morning/after rest, worse at end of the day Course: , at approximately 6 0 % Treatments: medication (MOTRIN_ ) rest,night splint , stretching , physical therapy , Pt relates non compliance with recommended treatment plan of supportive shoes Painful Nails Pt States Last PCP Visit: Date:: 04/02/2023 Wart Pt States Last PCP Visit: Date:: 04/02/2023 Examination Category Sub-Category Detail Notes Category Not es Heel Pain INSPECTION REVEALS: POP Plantar Fascia med. and central bands, intrinsic musc., infracalcaneal bursa, and med calc tubercle . No pain: posterior/superior heel, achilles bursa/tendon, sinus tarsi, peroneals; no limited STJ ROM, calor, or eccymosis. Pain on Heel Compression absent RIGHT foot , States approximately 60% LESS Neurological SENSORY: BABINSKI REFLEX: TINEL'S COMPRESSION: DEEP TENDON REFLEXES: Dermatologic SKIN FINDINGS: , Skin exam reve als normal texture, elasticity, and tugor. There are no masses. The interspaces are clear ULCER: VERRUCA: single , round, rais ed, flat-topped, petechial bleeding papulae(s), with cauliflower appearance and interrruption of skin lines, with pain to both direct and lateral compression, and size estimated at 2mm, plantar Heel, LEFT Vascular DP PULSES(B): 2/4, B/L PT PULSES(B): 2/4, B/L CAPILLARY FILL TIME: 3 secs. per digit, B/L Nails NAILS are: elongated,overgr own,dystrophic,greater than 3mm thick,discolored and friable with crumbly malodorous subungual debris, with pain on palpation, 1-5 B/L
--- OUTSIDE RECORDS SUMMARY | 2024-04-08 14:56 | XMS_ITS ---
Author Organization [facility] Address [address] [address] Care Team Providers Care Habitat Biologist Name Role Phone Chip Templeton MD Primary Care Provider Unavailabl e Black, Juliette Unavailable [phone] Allergies Allergen (clinical drug ingredient) Drug/Non Drug Allergy documented on EMR Reaction Allergy Type Onset Date Status amoxicillin Amoxicillin diarrhea Drug Allergy Act julissa sulfamethoxazole / trimethoprim Bactrim diarrhea Drug Allergy Active cephalexin Cephalexin diarrhea Drug Allergy Activ e ciprofloxacin Cipro diarrhea Drug Allergy Act julissa Levaquin diarrhea Drug Allergy Active Yknti-Pqzsz-Qprvj yx-Pramoxine swelling Drug Allergy Active Midazolam Unknown Drug Allergy Active Adhesive itchy, redness Allergy Activ e Latex Latex itchy, redness Allergy Activ e REASON FOR VISIT Heel pain, Painful nail(s) aggrevated by shoes and causing difficulty standing/walking., Wart(s), Swelling Medications Medication SIG (Take, Route, Frequency, Duration) Notes Start Date End Date Status Dovonex PRN Active Multivitamins as directed Orally Active Atorvastatin Calcium 10 MG 1 tablet Oral ly Once a day for 30 day(s) Active Baby Aspirin Active Cyclobenzaprine HCl 10 MG 1 tablet at be dtime as needed Orally Once a day PRN Active Noritate Not-Taking Luxiq Not-Taking Losartan Potassium 25 MG 1 tablet Orally Once a day Active Li Allergy Not- Taking Flomax Not-Taking MiraLax PRN Active ZyrTEC Allergy PRN Activ e Topiramate 25 MG 1 tablet Orally Once a day for 30 day(s) Not-Taking Social History Tobacco Use: Social History Observation [...] user? No Vital Signs Height 5ft in 10/08/2023 Weight 172 lbs 10/08/2023 BMI 33.59 kg/m2 10/08/2023 Blood pressure systolic 122 mm Hg 10/08/19 24 Blood pressure diastolic 61 mm Hg 024 Procedures Procedure Date Ordered Date Performed Result Body Sit e 87337-RLFKXXE NAIL, 6 OR MORE 10/08/2023 N/A 04415-Spok Destruction, 1-14 10/08/2023 N/A Encounters Encounter Location Date Provider Diagnosis [facility] [address] [place] [address] 10/08/2023 Juliette Black Other viral warts B07.8 ; Plantar fascial fibromatosis M72.2 ; Tinea unguium B35.1 ; Pain in left foot M79.672 ; Pain in right toe(s) M79.674 ; Pain in left toe(s) M79.675 ; Other myositis, right ankle and foot M60.871 ; Other bursitis, not elsewhere classified, right ankle and foot M71.571 and Edema, lower extremity R60.0 Assessments Encounter Date Diagnosis (ICD Code) Assessment Notes Treatment Notes Treatment Clinical Notes Section Notes 10/08/2023 Other viral warts (ICD-10 - B07.8) 10/08/2023 Plantar fascial fibromatosis (ICD-10 - M72.2) Response to treatment - Improvement 10/08/2023 Tinea unguium (ICD-10 - B35.1) 10/08/2023 Pain in left foot (ICD-10 - M79.672) 10/08/2023 Pain in right toe(s) (ICD-10 - M79.674) 10/08/2023 Pain in left toe(s) (ICD-10 - M79.675) 10/08/2023 Other myositis, right ankle and foot (ICD-10 - M60.871) 10/08/2023 Other bursitis, not elsewhere classified, right ankle and foot (ICD-10 - M71.571) 10/08/2023 Edema, lower extremity (ICD-10 - R60.0) Plan Of Treatment Pending Test Test Name Order Date 18293-OIOZPJT NAIL, 6 OR MORE 10/08/2023 25481-Qvsw Destruction, 1-14 10/08/2023 Next Appt Details Follow Up: prn, Reason: Provider Name:Juliette Welsh , 05/05/2024 03:45:00 PM, [address] [place] [address], [id number], Procedure Notes * Category Sub-Category Detail Notes Wart Treatment Procedure Verrucae(s) were debrided to pin-point bleeding margins with sterile surgical blade, silver nitrate chemocautery applied, recomm. immune-boosting meds such as zinc, recomm. follow up with topical chemosurgical agents, Pt STILL defers any other forms of tx (55377) Debride Nail 6-10 Nail debridement Nail debridem ent performed extensively to reduce/remove overall nail length and girth, subungual debris, and necrotic tissue, by manual and electrical means with use of a nail nipper and/or dremel, to more viable healthy nail plate or bed tissue 6-10. Silver nitrate used for any petechial bleeding as necessary. Patient chooses, no pharmaceutical tx (87205) Progress Notes * Ifeoma GA MDOB:1944 (78 yo F)Acc No.[id number]:10/08/2023 Progress Note Patient:?Ifeoma Ga Provider:?Juliettecachorro Welsh DPM :1945???Age:78 Y???Sex:Female D ate:10/08/2023 Address:[address] [place] [address] [id number] Pcp:Chip Templeton MD Subjective: * Chief Complaints: * ???Heel pain Painful nail(s) aggrevated by shoes and causing difficulty standing/walking.Wart(s)Swelling * HPI: ???Painful Nails:?Pt States Last PCP Visit:?Date:?10/05/2023 ???Wart:?Pt States Last PCP Visit:?Date:?10/05/2023 ???Heel pain:?Nature:?stiffness, tenderness.?Location:?RIGHT.?Duration:?several months .?Onset/Cause:?unknown, denies trauma.?Course:?, at [id number] %.?Aggrevated:?walking first thing in the morning/after rest, worse at end of the day.?Treatments:?medication (MOTRIN_ ) rest,night splint , stretching , physical therapy , Pt relates non compliance with recommended treatment plan of supportive shoes.?Severity/Quality:?mild.?Swelling:?Location:?Both feet/leg.?Duration:?several weeks.?Course:?worse.? * ROS:?General/Constitutional:?Nausea?denies.?Vomiting?denies.?Hunger Thirst?denies.?Loss appetite?denies.?Chills?denies.?Fatigue?denies.?Fever?denies.?Night Sweats?denies.?Unexplained weight loss?denies.?Ophthalmologic:?Blurred [...] * Hospitalization/Major Diagno stic Procedure:?Patient went to [facility] ER for chest pain. 04/27/2014[facility]- Passed out and hit head on floor- concusion- neurologist- several strokes 04/12/2020[facility] ER- lump behind leg 09/08/22 * Family History:?Mother: dece ased, poor circulation, diagnosed with Other specified conditions influencing health status.?Father: , heart attack, diagnosed with Unspecified heart disease.?Paternal aunt: diabetes, stroke, diagnosed with Diabetic - NIDDM, Unspecified heart disease.?Siblings: , hypertension, diagnosed with Other malignant neoplasm of unspecified site, Unspecified essential hypertension.?Paternal Grand Mother: diagnosed with Family history of [...] the patient * Allergies:?Cephalexin: diarr heaCipro: diarrheaLevaquin: bvpqknpjJaucavskeIfoyj-Xuyyx-Cynfeya-Pramoxine: swellingBactrim: diarrheaAmoxicillin: diarrheaAdhesive: itchy, redness - AllergyLatex: itchy, redness - Allergyyes[Allergies Verified] Objective: * Vitals:?Ht: 5ft, Wt: 172, BM I: 33.59, Shoe size: 6.5W, BP: 122/61 mm Hg, Ht-cm: 152.4 cm, Wt-k.02 kg. * Examination: ???Vascular: ?DP PULSES:?2/4, B/L.?PT PULSES:?2/4, B/L.?CAPILLARY FILL TIME:?3 secs. per digit, B/L.?EDEMA:?2/4 , non-pitting , Foot , Ankle(s) , Leg(s).?LETTY'S SIGN:?absent, B/L.?PALPABLE CORDS:?absent, B/L.?Dermatologic: ?SKIN FINDINGS:?, Skin exam reveals normal texture, elasticity, and tugor. There are no masses. The interspaces are clear.?VERRUCA:?two, round, raised, flat-topped, petechial bleeding papulae(s), with cauliflower appearance and interrruption of skin lines, with pain to both direct and lateral compression, and size estimated at 2-3 mm, plantar Heel, LEFT.?Heel Pain: ?INSPECTION REVEALS:?POP Plantar Fascia med. and central bands, intrinsic musc., infracalcaneal bursa, and med calc tubercle . No pain: posterior/superior heel, achilles bursa/tendon, sinus tarsi, peroneals; no limited STJ ROM, calor, or eccymosis. Pain on Heel Compression absent RIGHT foot , States approximately 85% LESS.?Nails: ?NAILS are:?elongated,overgrown,dystrophic,greater than 3mm thick,discolored and [...] elsewhere classified, right ankle and foot - M71.571?9.?Edema, lower extremity - R60.0, Acute problem, Uncomplicated (3), Rx Management (4)? Plan: * Treatment: 2.?Pain in left foot?Procedure: 78214-Ycnb Destruction, -14 * Procedures:?Debride Nail 6-10:?Nail debridement?Nail debridement performed extensively to reduce/remove overall nail length and girth, subungual debris, and necrotic tissue, by manual and electrical means with use of a nail nipper and/or dremel, to more viable healthy nail plate or bed tissue 6-10. Silver nitrate used for any petechial bleeding as necessary. Patient chooses, no pharmaceutical tx (16117).?Wart Treatment:?Procedure?Verrucae(s) were debrided to pin-point bleeding margins with sterile surgical blade, silver nitrate chemocautery applied, recomm. immune-boosting meds such as zinc, recomm. follow up with topical chemosurgical agents, Pt STILL defers any other forms of tx (39966).? * Procedure Codes:?06373 DEBRI DE NAIL, 6 OR MORE, Modifiers: XS 19122 Wart Destruction, -14, Modifiers: XS * Preventive Medicine:? ??Counseling:?Discussion:?-14: Office or other outpatient visit for the evaluation and management of an established patient, which required a medically appropriate history and/or examination and MODERATE level of DECISION MAKING for: 1 OR MORE CHRONIC PROBLEM(S) THATS WORSENING, 2 STABLE CHRONIC PROBLEMS, A NEWLY DIAGNOSED PROBLEM WITH UNCERTAIN PROGNOSIS, AN ACUTE COMPLICATED INJURY WITH MULTIPLE TREATMENT OPTIONS, OR AN ACUTE PROBLEM WITH ACCOMPANYING SYSTEMIC SYMPTOMS, THAT POSE(S) A MODERATE RISK OF MORBIDITY. THIS CONDITION MAY ALSO INCLUDE RX DRUG MANAGEMENT, OR A DECISON FOR MINOR SURGERY. The visit on the day of the [...] have encouraged the patient to call the office.?Edema:?I explained to the patient the possible etiologies for Edema, including genetic, surgery, infection, medications, heart disease, kidney disease, excess dietary salt, and various cancer treatments. We discussed the risks/benefits of the treatment options available including rest, elevation, OTC compression stockings, Rx compression stockings, Unna Boot application, diet modification to limit salt intake, and Rx segmental compression boots provided the absence of CHD in the patients medical history. The advantages and disadvantages of each option were discussed and the patients questions re: risk of infection(cellulitis), medications, diet, and the daily use of compression stockings(not to be worn at night), and consistency in these home treatment regimens for optimal success were answered to their verbally confirmed satisfaction. Given the risk for vessel clotting disease, the patient was instructed to go immediately to the ER of hospital should they experience any calf pain, SOB, or discomfort. Any changes to the patients medication regimen will be performed by the PCP or patients kidney/heart/cancer specialist..?Heel pain:?We elected to continue with the present tx plan due to the succes. Pt is going to increase her walking I recomm. that she strecth well before hand and after and continue to wear supportive shoes.? * Follow Up:?prn * Images: * Sign off status: Completed true * Provider:?Juliette Welsh DPM Date:?2023 Generated for Rosy morel/Nevaeh/Shay on:?04/08/2024 02:56 PM EST History and Physical Notes * HPI (History of Present Illness) Category Sub-Category Detail Notes Category Not es Heel pain Duration: several months Nature: stiffness, tendernes s Severity/Quality: mild Location: RIGHT Onset/Cause: unknown, denies kristen jennings Aggravated: walking first thing in the morning/after rest, worse at end of the day Course: , at [id number] % Treatments: medication (MOTRIN_ ) rest,night splint , stretching , physical therapy , Pt relates non compliance with recommended treatment plan of supportive shoes Painful Nails Pt States Last PCP Visit: Date:: 10/05/2023 Wart Pt States Last PCP Visit: Date:: 10/05/2023 Swelling Location: Both feet/leg Duration: several weeks Course: worse Examination Category Sub-Category Detail Notes Category Not es Heel Pain INSPECTION REVEALS: POP Plantar Fascia med. and central bands, intrinsic musc., infracalcaneal bursa, and med calc tubercle . No pain: posterior/superior heel, achilles bursa/tendon, sinus tarsi, peroneals; no limited STJ ROM, calor, or eccymosis. Pain on Heel Compression absent RIGHT foot , States approximately 85% LESS Neurological SENSORY: BABINSKI REFLEX: TINEL'S COMPRESSION: DEEP TENDON REFLEXES: Dermatologic SKIN FINDINGS: , Skin exam reve als normal texture, elasticity, and tugor. There are no masses. The interspaces are clear ULCER: VERRUCA: two, round, raised, flat-topped, petechial bleeding papulae(s), with cauliflower appearance and interrruption of skin lines, with pain to both direct and lateral compression, and size estimated at 2-3 mm, plantar Heel, LEFT Vascular DP PULSES(B): 2/4, B/L PT PULSES(B): 2/4, B/L CAPILLARY FILL TIME: 3 secs. per digit, B/L EDEMA(C): 2/4 , non-pitting , Foot , Ankle(s) , Leg(s) LETTY'S SIGN: absent, B/L PALPABLE CORDS: absent, B/L Nails NAILS are: elongated,overgr own,dystrophic,greater than 3mm thick,discolored and friable with crumbly malodorous subungual debris, with pain on palpation, 1-5 B/L
--- OUTSIDE RECORDS SUMMARY | 2024-04-08 14:57 | XMS_ITS | Patient Health Record ---
Author Organization [facility] Address [address] [place] [address] Care Team Providers Care Sewing Machine Mechanic Name Role Phone Chip Templeton MD Primary Care Provider Unavailabl e Black, Juliette Unavailable [phone] Allergies Allergen (clinical drug ingredient) Drug/Non Drug Allergy documented on EMR Reaction Allergy Type Onset Date Status amoxicillin Amoxicillin diarrhea Drug Allergy Act julissa sulfamethoxazole / trimethoprim Bactrim diarrhea Drug Allergy Active cephalexin Cephalexin diarrhea Drug Allergy Activ e ciprofloxacin Cipro diarrhea Drug Allergy Act julissa Levaquin diarrhea Drug Allergy Active Bzris-Bswiu-Yywod yx-Pramoxine swelling Drug Allergy Active Midazolam Unknown Drug Allergy Active Adhesive itchy, redness Allergy Activ e Latex Latex itchy, redness Allergy Activ e Reason For Referral No Information Medications Medication SIG (Take, Route, Frequency, Duration) Notes Start Date End Date Status Baby Aspirin Active Dovonex PRN Active Multivitamins as directed Orally Active MiraLax PRN Active ZyrTEC Allergy PRN Activ e Topiramate 25 MG 1 tablet Orally Once a day for 30 day(s) Not-Taking Noritate Not-Taking Luxiq Not-Taking Losartan Potassium 25 MG 1 tablet Orally Once a day Active Li Allergy Not- Taking Cyclobenzaprine HCl 10 MG 1 tablet at be dtime as needed Orally Once a day PRN Active Flomax Not-Taking Atorvastatin Calcium 10 MG 1 tablet Oral ly Once a day for 30 day(s) Active Immunizations Vaccine Route Administration Date Status Comme nts COVID-19 Moderna Vaccine Unknown 02/18/2021 Administered First Dose:06/08/2020 Second Dose: 07/06/2020 Social History Tobacco Use: Social History Observation [...] Are you an other tobacco user? No Problems Problem Type SNOMED Code ICD Code Onset Dates Problem Status W/U Status Risk Notes Problem Acquired hammer toe of right foot (0290002864471622 ) Other hammer toe(s) (acquired), right foot (M20.41) Active confirmed Problem Acquired hammer toe of left foot (9066216943383090 ) Other hammer toe(s) (acquired), left foot (M20.42) Active confirmed Problem Ulcer of toe (930435888) Non-pressure chronic ulcer of other part of right foot limited to breakdown of skin (L97.511) Active confirmed Problem Acquired hammer toe of right foot (1212464952934532 ) Other hammer toe(s) (acquired), right foot (M20.41) Active confirmed Problem Acquired hammer toe of left foot (2327097207039512 ) Other hammer toe(s) (acquired), left foot (M20.42) Active confirmed Problem 51797645 Leg length discrepancy (M21.70) Active confirmed Problem Acquired deformity of left foot (1723880677815254 4) PlantarFlexion of metatarsal of left foot (M21.6X2) Active confirmed Problem Localized, primary osteoarthritis of the ankle and/or foot (585757997) Arthritis of joint of lesser toe, left (M19.072) Active confirmed Problem Localized, primary osteoarthritis of the ankle and/or foot (411074962) Arthritis of joint of lesser toe, right (M19.071) Active confirmed Vital Signs Blood pressure diastolic 66 mm Hg 01/21/2024 Height 5ft in 01/21/2024 Blood pressure systolic 129 mm Hg 01/21/2024 Weight 175 lbs 01/21/2024 BMI 34.17 kg/m2 01/21/2024 Procedures Procedure Date Ordered Date Performed Result Body Sit e 87718-EYZOWFR NAIL, 6 OR MORE 06/28/2023 N/A 75058-Ahce Destruction, 1-14 06/28/2023 N/A 86524-OTODKLP NAIL, 6 OR MORE 10/08/2023 N/A 94832-Gmyc Destruction, 1-14 10/08/2023 N/A 34843-ZAFFWIT NAIL, 6 OR MORE 01/21/2024 N/A 69980-Qnvp Destruction, 1-14 01/21/2024 N/A Encounters Encounter Location Date Provider Diagnosis [address] [address] 06/28/2023 Juliette Welsh Other viral warts B07.8 ; Plantar fascial fibromatosis M72.2 ; Tinea unguium B35.1 ; Pain in left foot M79.672 ; Pain in right toe(s) M79.674 ; Pain in left toe(s) M79.675 ; Other myositis, right ankle and foot M60.871 and Other bursitis, not elsewhere classified, right ankle and foot M71.[address] [address] 10/08/2023 Juliettecacohrro Welsh Other viral warts B07.8 ; Plantar fascial fibromatosis M72.2 ; Tinea unguium B35.1 ; Pain in left foot M79.672 ; Pain in right toe(s) M79.674 ; Pain in left toe(s) M79.675 ; Other myositis, right ankle and foot M60.871 ; Other bursitis, not elsewhere classified, right ankle and foot M71.571 and Edema, lower extremity R60.[address] [address] 01/21/2024 Juliette Black Other viral warts B07.8 ; Tinea unguium B35.1 ; Pain in left foot M79.672 ; Pain in right toe(s) M79.674 and Pain in left toe(s) M79.675 Assessments Encounter Date Diagnosis (ICD Code) Assessment Notes Treatment Notes Treatment Clinical Notes Section Notes 06/28/2023 Other viral warts (ICD-10 - B07.8) 10/08/2023 Other viral warts (ICD-10 - B07.8) 01/21/2024 Other viral warts (ICD-10 - B07.8) 01/21/2024 Tinea unguium (ICD-10 - B35.1) 06/28/2023 Plantar fascial fibromatosis (ICD-10 - M72.2) Response to treatment - Improvement 01/21/2024 Pain in left foot (ICD-10 - M79.672) 10/08/2023 Plantar fascial fibromatosis (ICD-10 - M72.2) Response to treatment - Improvement 06/28/2023 Tinea unguium (ICD-10 - B35.1) 01/21/2024 Pain in right toe(s) (ICD-10 - M79.674) 10/08/2023 Tinea unguium (ICD-10 - B35.1) 06/28/2023 Pain in left foot (ICD-10 - M79.672) 01/21/2024 Pain in left toe(s) (ICD-10 - M79.675) 06/28/2023 Pain in right toe(s) (ICD-10 - M79.674) 10/08/2023 Pain in left foot (ICD-10 - M79.672) 06/28/2023 Pain in left toe(s) (ICD-10 - M79.675) 10/08/2023 Pain in right toe(s) (ICD-10 - M79.674) 10/08/2023 Pain in left toe(s) (ICD-10 - M79.675) 06/28/2023 Other myositis, right ankle and foot (ICD-10 - M60.871) 06/28/2023 Other bursitis, not elsewhere classified, right ankle and foot (ICD-10 - M71.571) 10/08/2023 Other myositis, right ankle and foot (ICD-10 - M60.871) 10/08/2023 Other bursitis, not elsewhere classified, right ankle and foot (ICD-10 - M71.571) 10/08/2023 Edema, lower extremity (ICD-10 - R60.0) Plan Of Treatment Pending Test Test Name Order Date X ray : Foot, right 3V 01/13/2013 15056-HPUXGVW NAIL, 6 OR MORE 04/01/2013 48835-LLFMAIP NAIL, 6 OR MORE 08/04/2013 54682-MLKXJTF NAIL, 6 OR MORE 04/06/2014 80730-WURJZBD NAIL, 6 OR MORE 08/03/2014 64454-ULGRHLI NAIL, 6 OR MORE 12/10/2014 77567-ETRDKBY NAIL, 6 OR MORE 04/12/2015 07748-DSAPUOE NAIL, 6 OR MORE 08/16/2015 93981-TNTZNPY NAIL, 6 OR MORE 12/22/2015 85852-YTRDGAB NAIL, 6 OR MORE 06/05/2011 83689-NHXIUNM NAIL, 6 OR MORE 09/11/2011 33318-FNGBIVE NAIL, 6 OR MORE 12/11/2011 44291-YKHCSXT NAIL, 6 OR MORE 03/18/2012 52940-ZWXHRUY NAIL, 6 OR MORE 06/27/2012 02922-DODSQAO NAIL, 6 OR MORE 10/10/2012 25102-GYGERGX NAIL, 6 OR MORE 01/13/2013 94879-YNNUCGT NAIL, 6 OR MORE 04/12/2016 72853-GSCFHTU NAIL, 6 OR MORE 08/07/2016 88568-XUCKCBL NAIL, 6 OR MORE 12/07/2016 43396-EQZROFX NAIL, 6 OR MORE 11/22/2017 20150-NPGUVTQ NAIL, 6 OR MORE 06/06/2018 00860-JNBITNQ NAIL, 6 OR MORE 10/03/2018 93705-YVEDTZC NAIL, 6 OR MORE 03/07/2018 72726-BXWLPRL NAIL, 6 OR MORE 02/17/2019 02192-OTILADN NAIL, 6 OR MORE 06/12/2019 36391-TFODDVY NAIL, 6 OR MORE 10/09/2019 74295-RPJERDA NAIL, 6 OR MORE 02/19/2020 53537-VGUCXSC NAIL, 6 OR MORE 06/21/2020 84250-YURYIJV NAIL, 6 OR MORE 10/18/2020 73135-VOQIMIG NAIL, 6 OR MORE 01/17/2021 66136-OYQYLVZ NAIL, 6 OR MORE 05/12/2021 38901-LJDXFMB NAIL, 6 OR MORE 08/11/2021 38953-DJBZUNP NAIL, 6 OR MORE 11/17/2021 55253-RDRRMAT NAIL, 6 OR MORE 02/23/2022 66530-YPNHLFV NAIL, 6 OR MORE 09/14/2022 87124-VERWBZX NAIL, 6 OR MORE 12/07/2022 40004-XGOQPKW NAIL, 6 OR MORE 03/15/2023 41506-GYOZQLU NAIL, 6 OR MORE 06/28/2023 37320-GTDBQRC NAIL, 6 OR MORE 10/08/2023 97998-OBPGOZB NAIL, 6 OR MORE 01/21/2024 45980-LSONNIU NAIL, 6 OR MORE 12/04/2013 04881-GMSMCPB NAIL, 6 OR MORE 06/08/2022 79155-RPLLUWN NAIL, 6 OR MORE 08/02/2017 41096-VDWLRQL NAIL, 6 OR MORE 04/05/2017 58354-Yrnz Destruction, -06/08/2022 76656-Bonv Destruction, -14 04/05/2017 87405-Hqdc Destruction, -14 08/02/2017 78294-Pokg Destruction, -14 12/04/2013 08820-Xzmt Destruction, -14 01/21/2024 36903-Tpxp Destruction, -14 10/08/2023 69122-Yirc Destruction, -06/28/2023 72708-Cloc Destruction, 05-1303/15/2023 64444-Jkus Destruction, 05-1312/07/2022 64298-Oyrz Destruction, -14 09/14/2022 76705-Nmhu Destruction, -14 02/23/2022 86253-Rzll Destruction, 05-1308/11/2021 87107-Qpik Destruction, 05-1311/17/2021 81878-Kiie Destruction, -05/12/2021 69035-Igqs Destruction, 05-1301/17/2021 89370-Utxz Destruction, 05-1310/18/2020 00125-Mfzy Destruction, 05-1306/21/2020 71740-Bgpn Destruction, 05-1302/19/2020 84005-Fdfc Destruction, -10/09/2019 11877-Zwva Destruction, 05-1306/12/2019 99240-Pqje Destruction, 05-1306/06/2018 99421-Jerm Destruction, 05-1312/07/2016 32340-Ixao Destruction, 05-1302/17/2019 53009-Qnxa Destruction, 05-1310/03/2018 36793-Yrvf Destruction, 05-1303/07/2018 10031-Iocv Destruction, 05-1311/22/2017 44774-Iemo Destruction, 05-1308/07/2016 63375-Puwe Destruction, 05-1304/12/2016 39911-Npct Destruction, 05-1310/10/2012 55675-Pxut Destruction, 05-1306/27/2012 79932-Aboc Destruction, 05-1303/06/2011 04962-Hyfm Destruction, 05-1303/18/2012 47335-Uomb Destruction, 05-1312/11/2011 22216-Acot Destruction, 05-1309/11/2011 89851-Rlcp Destruction, 05-1306/05/2011 99126-Kdaw Destruction, 05-1312/22/2015 29694-Bycv Destruction, 05-1308/16/2015 66797-Xvru Destruction, 05-1304/12/2015 66770-Pcnj Destruction, 05-1312/10/2014 06365-Slow Destruction, 05-1308/03/2014 41383-Suxt Destruction, 05-1304/06/2014 90913-Phbg Destruction, 05-1308/04/2013 96919-Spck Destruction, 05-1304/01/2013 24773-Trxgcysb Plate 12/07/2016 87556-Sbyacrac Plate 05/12/2021 41502- Debride <25 sq cm 05/12/2021 05654- Debride <25 sq cm 02/17/2019 22876- Debride <25 sq cm 04/06/2014 20011- Debride <25 sq cm 12/10/2014 48641- Debride <25 sq cm 12/11/2011 11313- Debride <25 sq cm 03/18/2012 78514- Debride <25 sq cm 06/27/2012 33145- Debride <25 sq cm 10/10/2012 18459- Debride <25 sq cm 01/13/2013 88286- Debride <25 sq cm 11/17/2021 59796- Debride <25 sq cm 08/11/2021 38636- Debride <25 sq cm 12/04/2013 Next Appt Details Provider Name:Juliette Welsh , 05/05/2024 03:45:00 PM, [address] [place], [address], Insurance Providers Payer Name Payer Address Payer Phone Subscriber Number Group Number Insured Name Patient Relationship to Insured Coverage Start Date Coverage End Date [facility] [address] [place] [address] [phone] [id number] Ifeoma Chakraborty Self - patient is the insured Medical (General) History Medical History History ICD Code thyroid disorder psoriasis measles fibromyalgia chicken pox headaches/migraines ear, eye, nose, throat problems, head in jury Surgical History Surgery Date(Month/Year) foot surgery gall stones hemorrhoidectomy 2003 tonsillectomy eye tearduct surgery 01/2016 eye surgery 01/2018 Hospitalization History Reason Date(Month/Year) [facility] behind [place] 09/08/22 [facility]- Passed out and hit head on floor- concusion- neurologist- several strokes 04/12/2020 Patient went to [facility] ER for chest pa in. 04/27/2014
--- NOTE | 2024-04-15 09:21 | MHC.AU.HA3 ---
Hearing Instrument Follow-Up- Binaural Date of Visit: 04/01/24 Right Ear: Wayne, Model, Color, Serial Number: Eddie RANGEL 16 ITC-R SN: [id number] Color: Yeager Farm Hand Repair Warranty: 01/22/2027 Farm Hand Loss and Damage Warranty: 01/22/2027 [facility] Service Plan: 01/16/2027 Battery Size: Rechargeable Type of Wax Guard: HearClear Dispensed By: [facility] Date of Fittin01/17/2024 Left Ear: Wayne Model, Color, Serial Number: Eddie RANGEL 16 ITC-R [id number] Color: Yeager Farm Hand Repair Warranty: 01/22/2027 Farm Hand Loss and Damage Warranty: 01/22/2027 [facility] Service Plan: 01/16/2027 Battery Size: Rechargeable Type of Wax Guard: HearClear Dispensed By: [facility] Date of Fittin01/17/2024 Follow-Up Summary: Accompanied by , Manuel. Still not satisfied with new Eddie HAs, wants to return for credit. Discussed options - continue to use old HAs, switch to newer Phonak battery-powered, wait until new Phonak custom rechargeable is released. Top priority for new HAs is rechargeability due to increasing dexterity concerns. Opted to wait until Phonak custom rechargeables are available. Knows she will need updated hearing test and new impressions at that time. Returned Eddie Jolly for credit. Will use old HAs in meantime. May need to consider extended applications development consultant tube on new HAs (has on current Phonak HAs) as wax guards on Eddie HAs became occluded quite often even though otoscopy clear. Will discuss transferring consult fee with Beatrice Zuñiga, public housing manager of [facility], once process for new HAs is restarted. Recommendations: Patient will be contacted once Phonak custom rechargeable HAs become available. Will need doctor's order for updated hearing test at that time. Diagnosis Code(s): Primary Diagnosis: H90.3 Bilateral Sensorineural Hearing Loss Signature: Provider: Malgorzata Stanton, [facility]
== END 2024-04-01 14:28 | disposition home or self-care (01) ==
LOC: HO.HAP 14:27
PROVIDERS: Visit Provider Internal Medicine
DX: Z13.89 Encounter for screening for other disorder (principal)

== ENCOUNTER 2025-04-29 11:11 | Outpatient (REF) | payer MEDICARE, SELFPAY ==
--- OUTSIDE RECORDS SUMMARY | 2024-11-04 08:00 | XMS_ITS ---
Author Organization [facility] Address [address] [place] [address] Care Team Providers Care Allergist/Pediatric Pulmonologist Name Role Phone Chip Templeton MD Primary Care Provider UnavailJuliette Montes De Oca [phone] Encounters Encounter Location Date Provider Diagnosis [address] [address] 11/04/2024 Juliette Welsh Plan Of Treatment Next Appt Details Provider Name:Juliette De Oliveira Blaise , 05/07/2025 09:00:00 AM, [address] [place], [address], Progress Notes * Ifeoma GA MDOB:1944 (80 yo F)Acc No.[id number]:11/04/2024 Progress Note Patient: Sreekanth Ifeoma [place] Provider: Irma Welsh DPM :1945 A ge:79 Y S ex:Female Date:11/04/2024 Address:[address] [place], [place] [address] [id number] Pcp:Chip Templeton MD Subjective: * Chief Complaints: * * Medical History: Objective: * Vitals: Assessment: Plan: * Treatment: * Images: * The named appointment provid er may or may not be the originator of this progress note, and it is not deemed complete until electronically signed by the appointment provider. Sign off status: Pending * Provider: Irma Welsh DPM Date: 0 11/04/2024 Generated for Rosy morel/Nevaeh/Shay on: 1 11:55 AM EST
--- OUTSIDE RECORDS SUMMARY | 2024-12-19 07:00 | XMS_ITS ---
Author Organization [facility] Address [address] [place] [phone] Care Team Providers Care Medieval English Literature Professor Name Role Phone Chip Templeton MD Primary Care Provider UnavailJuliette Montes De Oca [phone] Encounters Encounter Location Date Provider Diagnosis [address] [address] 12/19/2024 Juliette Welsh Plan Of Treatment Next Appt Details Provider Name:Juliette A Blaise , 05/07/2025 09:00:00 AM, [address] [place], [address], Progress Notes * Ifeoma GA MDOB:1944 (80 yo F)Acc No.[id number]:12/19/2024 Progress Note Patient: Sreekanth Ifeoma [place] Provider: Irma Welsh DPM :1945 A ge:79 Y S ex:Female Date:12/19/2024 Address:[address] [place], [place] [address] [id number] Pcp:Chip Templeton MD Subjective: * Chief Complaints: * * Medical History: Objective: * Vitals: Assessment: Plan: * Treatment: * Images: * The named appointment provid er may or may not be the originator of this progress note, and it is not deemed complete until electronically signed by the appointment provider. Sign off status: Pending * Provider: Irma Welsh DPM Date: 0 12/19/2024 Generated for Rosy morel/Nevaeh/Shay on: 1 11:55 AM EST
--- OUTSIDE RECORDS SUMMARY | 2025-01-14 07:30 | XMS_ITS ---
Author Organization [facility] Address [address] [place] [address] Care Team Providers Care Theology Teacher Name Role Phone Chip Templeton MD Primary Care Provider UnavailJuliette Montes De Oca [phone] Encounters Encounter Location Date Provider Diagnosis [address] [address] 01/14/2025 Juliette Welsh Plan Of Treatment Next Appt Details Provider Name:Juliette A Blaise , 05/07/2025 09:00:00 AM, [address] [place], [address], Progress Notes * Ifeoma GA MDOB:1944 (80 yo F)Acc No.[id number]:01/14/2025 Progress Note Patient: Sreekanth Ifeoma [place] Provider: Irma Welsh DPM :1945 A ge:79 Y S ex:Female Date:01/14/2025 Address:[address] [place], [place] [address] [id number] Pcp:Chip Templeton MD Subjective: * Chief Complaints: * * Medical History: Objective: * Vitals: Assessment: Plan: * Treatment: * Images: * The named appointment provid er may or may not be the originator of this progress note, and it is not deemed complete until electronically signed by the appointment provider. Sign off status: Pending * Provider: Irma Welsh DPM Date: 0 01/14/2025 Generated for Rosy morel/Nevaeh/Shay on: 1 11:55 AM EST
--- OUTSIDE RECORDS SUMMARY | 2025-04-28 08:05 | XMS_ITS | Encounter Summary ---
Author Organization [facility] Address [address] [place] [address] Care Team Providers Care Production Supervisor Trainee Name Role Phone Sterling Templeton MD Primary Care Provider Encounter Details Date Type Department Care Team ([facility] st Contact Info) Description 04/28/2025 8:05 AM [facility] Lab Draw Station [address] [address] Prediabetes; Primary hypertension; Encounter for long-term (current) use of medications; Pure hypercholesterolemia Social History Tobacco Use Types Packs/Day Years Used Date Smoking Tobacco: Never Smokeless Tobacco: Never Alcohol Use Standard Drinks/Week Comments Yes 0 (1 standard drink = 0.6 oz pur e alcohol) Housing Instability Answer Date Recorde d Are you worried that in the next 2 months you may not have stable housing? No 09/30/2024 Food Access & Nutrition Answer Date Rec orded Do you have access to a vari ety of food including fruits and vegetables? Yes 09/30/2024 Access to Healthcare Answer Date Record ed Within the last 3 months, ho w many times did you visit the emergency department for your medical care? 0 09/30/2024 Health Literacy Answer Date Recorded How often do you need to hav e someone help you when you read instructions, pamphlets, or other written material from your doctor or pharmacy? Rarely 09/30/2024 Caregiver: How often do you need to have someone help you when you read instructions, pamphlets, or other written material from your doctor or pharmacy? Not on file 09/30/2024 Financial Risk Answer Date Recorded How hard is it for you to pa y for the very basics like food, housing, medical care, and air conditioning / heating? Not very hard 09/30/2024 Transportation Answer Date Recorded Has the lack of transportati on kept you from meetings, work, or from getting things needed for daily living? No Has the lack of transportati on kept you from medical appointments or from getting medications? No 09/30/2024 Social Isolation Answer Date Recorded How often do you feel lonely or isolated from th ose around you? Never 09/30/2024 Food Risk Answer Date Recorded Within the past 12 months we worried whether our food would run out before we got money to buy more. Never true 09/30/2024 Within the past 12 months th e food we bought just didn't last and we didn't have money to get more. Never true 09/30/2024 Dependent Care Answer Date Recorded Do you need help finding or paying for care for your loved ones. For example, child support case officer or elderly care for an older adult? No 09/30/2024 Education Answer Date Recorded Do you think completing more education or training, like finishing a GED, going to college, or learning a trade, would be helpful for you? N/A 09/30/2024 Employment and Income Answer Date Recor ded During the last four weeks, have you been actively looking for work? No 09/30/2024 Living Situation Answer Date Recorded What is your living situation? Unrecognized valu e 09/30/2024 Comments No Sex and Gender Information Value Date Recorded Sex Assigned at Not on file Legal Sex Female 3:26 PM EST Gender Identity Not on file Sexual Orientation Not on file documented as of this encounter Plan of Treatment Upcoming Encounters Date Type Department Care Team (Late st Contact Info) Description 05/14/2025 9:40 AM EST Appointment Radiology Department - [address] [phone] 05/28/2025 11:15 AM EST Appointment Bone Density - [address] [phone] 11/16/2025 9:45 AM EDT Office Visit [facility] - [address] [phone] Sterling Templeton MD [address] [place] [phone] documented as of this encounter Procedures Procedure Name Priority Date/Time Associated Diagnosis Comments LIPID PANEL WITH REFLEX TO DIRECT LDL Routine 04/28/2025 8:14 AM EST Pure hypercholesterolemia HEMOGLOBIN A1C Routine 04/28/2025 8:14 AM EST Prediabetes COMPREHENSIVE METABOLIC PANEL Routine 04/28/2025 8:14 AM EST Primary hypertension Encounter for long-term (current) use of medications documented in this encounter Results * Lipid panel with reflex to direct LDL (04/28/2025 8:14 AM EST) Cholesterol 144 0 - 200 mg/dL 04/28/2025 11:14 AM [facility] Triglycerides 112 0 - 150 mg/dL 04/28/2025 11:14 AM [facility] HDL 59 >=40 mg/dL 04/28/2025 11:14 AM [facility] LDL Calculated 63 0 - 100 mg/dL 04/28/2025 11:14 AM [facility] Comment:Estimated LDL is [place] culated using the Friedewald equation: Total cholesterol - HDL cholesterol - (Triglycerides/5) VLDL Cholesterol [place] 22.4 mg/dL 04/28/2025 11:14 AM [facility] Non HDL Chol. (LDL+VLDL) 85 <145 mg/dL 04/28/2025 11:14 AM [facility] Chol/HDL Ratio 2.4 0.0 - 4.4 04/28/2025 11:14 AM [facility] Blood Venous blood specimen / Unknown Venipuncture / Unknown 04/28/2025 8:14 AM EST 04/28/2025 8:14 AM EST us Sterling Templeton MD LAB BLOOD ORDERABLES Final Resu lt [facility] [address] [place] [address], * Comprehensive metabolic panel (04/28/2025 8:14 AM EST) Sodium 143 133 - 145 mmol/L 04/28/2025 11:14 AM [facility] Potassium 4.1 3.5 - 5.5 mmol/L 04/28/2025 11:14 AM [facility] Chloride 102 96 - 110 mmol/L 04/28/2025 11:14 AM [facility] CO2 31 21 - 32 mmol/L 04/28/2025 11:14 AM [facility] Anion Gap 10 3 - 11 04/28/2025 11:14 AM [facility] Glucose 88 70 - 100 mg/dL 04/28/2025 11:14 AM [facility] BUN 13 5 - 25 mg/dL 04/28/2025 11:14 AM [facility] Creatinine 0.72 0.50 - 1.10 mg/dL 04/28/2025 11:14 AM [facility] eGFR 86 >=60 mL/min/1. 73m2 04/28/2025 11:14 AM [facility] Comment:Calculation based on the Chronic Kidney Disease Epidemiology Collaboration (CKD-EPI) equation refit without adjustment for race. BUN/Creatinine Ratio 18.1 04/28/2025 11:14 AM [facility] Calcium 9.1 8.5 - 10.5 mg/dL 04/28/2025 11:14 AM [facility] AST (SGOT) 27 10 - 42 unit/L 04/28/2025 11:14 AM [facility] ALT (SGPT) 34 10 - 60 unit/L 04/28/2025 11:14 AM EST [facility] Alkaline Phosphatase 87 42 - 121 unit/L 04/28/2025 11:14 AM [facility] Total Protein 7.2 6.0 - 8.0 g/dL 04/28/2025 11:14 AM EST [facility] Albumin 4.1 3.2 - 5.0 g/dL 04/28/2025 11:14 AM [facility] Total Bilirubin 0.4 0.0 - 1.4 mg/dL 04/28/2025 11:14 AM [facility] Blood Venous blood specimen / Unknown Venipuncture / Unknown 04/28/2025 8:14 AM EST 04/28/2025 8:14 AM EST us Sterling Templeton MD LAB BLOOD ORDERABLES Final Resu lt Performing Organization Address City/[facility]/ZIP Co de Phone Number [facility] [address] [place] [address], [place] [phone] * Hemoglobin A1c (04/28/2025 8:14 AM EST) Hemoglobin A1C 6.2 <6.5 % LAB CHEMISTRY METHOD 04/28/2025 11:59 AM EST [facility] Mean Bld Glu Estim. 131 mg/dL LAB CHEMISTRY METHOD 04/28/2025 11:59 AM EST [facility] Blood Venous blood specimen / Unknown Venipuncture / Unknown 04/28/2025 8:14 AM EST 04/28/2025 8:14 AM EST us Sterling Templeton MD LAB BLOOD ORDERABLES Final Resu lt Performing Organization Address [facility] [place] [facility]/ZIP Co de Phone Number [facility] [address] [place] [address], [place] [phone] documented in this encounter Visit Diagnoses Diagnosis Prediabetes Other abnormal glucose Primary hypertension Unspecified essential hypertension Encounter for long-term (current) use of medications Encounter for long-term (current) use of other medications Pure hypercholesterolemia documented in this encounter Additional Health Concerns Assessment Noted Time PHQ-9 Depression Total Score: 0 10/01/19 25 1:24 PM EDT A fall risk assessment has been complete d for the patient 04/21/2025 1:02 PM EST documented as of this encounter Care Teams Production Supervisor Trainee Relationship Specialty Start Date End Date Sterling Templeton MD [address] [place] [address] PCP - General Internal Medicine 10/28/19 documented as of this encounter
--- OUTSIDE RECORDS SUMMARY | 2025-04-29 12:46 | XMS_ITS | Encounter Summary ---
Author Organization [facility] Address [address] [place] [address] Care Team Providers Care Design Engineer Marine Equipment Name Role Phone Sterling Templeton MD Primary Care Provider [phone] Encounter Details Date Type Department Care Team ([facility] st Contact Info) Description 04/28/2025 Results Follow-Up Adult Medicine [address] [phone] Sterling Templeton MD [address] [place], [place] Social History Tobacco Use Types Packs/Day Years [...] care for your loved ones. For example, director maternal child or elderly care for an older adult? [...] 9:40 AM EST Appointment Radiology Department - [address] [phone] 05/28/2025 11:15 AM EST Appointment Bone Density - [address] [phone] 11/16/2025 9:45 AM EDT Office Visit [facility] - [place] [address] [place] [address] Sterling Templeton MD [address] [place] [address] documented as of this encounter Visit Diagnoses Not on filedocumented in this encounter Additional Health Concerns Assessment Noted Time PHQ-9 Depression Total Score: 0 10/01/19 25 1:24 PM EDT A fall risk assessment has been complete d for the patient 04/21/2025 1:02 PM EST documented as of this encounter Care Teams Design Engineer Marine Equipment Relationship Specialty Start Date End Date Sterling Templeton MD [address] [place] [address] PCP - General Internal Medicine 10/28/19 documented as of this encounter
--- OUTSIDE RECORDS SUMMARY | 2025-04-29 12:46 | XMS_ITS | Data Portability ---
Author Organization [place] [facility],, KENYA HUTCHINSON MD Address [address] [address] Care Team Providers Care Senior Animal Trainer Name Role Phone DURAN ZAVALA Primary Care Provider [phone] Assessment No assessment recorded. Plan of Treatment Reminders Order Date Submit Date Provider Last Modified By Organization Details Last Modified Time Details Appointments ANNUAL EXAM 2025 11:00A M Kenya Hutchinson MD Not available Not available Not available Lab cytology report, thin prep, smear or scraping , cervical or vaginal 2024 025 FREDDIE [facility] (Centralized Electronic Ordering - All Locations), Patient Can Go To The Location Of Their Choice, [address] 12/04/2024 16:16:58 cytology report, thin prep, smear or scraping , cervical or vaginal 2023 024 FREDDIE [facility] (Centralized Electronic Ordering - All Locations), Patient Can Go To The Location Of Their Choice, [address] 12/07/2023 10:07:12 pap test, thinprep , cervical 2022 023 [facility] (Centralized Electronic Ordering - All Locations), Patient Can Go To The Location Of Their Choice, [address] 12/06/2022 07:30:21 pap test, thinprep , cervical 2021 022 [facility], Cytopathology Service, [address] [place], [address], 11/30/2021 07:35:48 pap test, thinprep , cervical 2020 021 [facility], Cytopathology Service, [address] [facility], [place], [address], 12/06/2020 07:23:11 Referral None recorded . Procedures None recorded . Surgeries None recorded . Imaging MAMMO, screenin g, digital, bilatera l - Breast Aspirati on and/or Biopsy if needed 2024 025 [facility] ([facility]), [address] [place], [address], 12/03/2024 11:44:46 bone density 2024 025 [facility] ([facility]), [address] [place], [address], 12/03/2024 11:44:46 MAMMO, screenin g, digital, bilatera l - Breast Aspirati on and/or Biopsy if needed 2023 024 [facility] ([facility]), [address] [place], [address], 11/27/2024 07:17:39 bone density 2023 024 [facility] ([facility]), [address] [place], [address], 11/27/2024 07:17:40 MAMMO, screenin g, digital, bilatera l - Breast Aspirati on and/or Biopsy if needed [address] [facility] ([facility]), [address] [place], [address], 05/01/2023 14:23:29 bone density 2022 023 [facility] ([facility]), [address] [place], [address], 05/28/2024 07:26:50 MAMMO, screenin g, digital, bilatera l [address] [facility] ([facility]), [address] [place], [address], 04/26/2022 15:37:[address] [facility] ([facility]), [address] [place], [address], 01/18/2022 19:45:01 MAMMO, screenin g, digital, bilatera l [address] [facility] ([facility]), [address] [place], [address], 04/18/2021 15:56:44 bone density [address] [place] [address] ([facility]), [address] [place], [address], 05/23/2021 08:45:33 Medication Orders estradio l 0.01% (0.1 mg/gram) vaginal cream 2024 025 [facility] #[id number], [address] [place], [address], 12/03/2024 11:09:28 triamcin olone acetonid e 0.1 % topical ointment 2023 024 [facility] #[id number], [address] [place], [address], 12/03/2023 12:52:21 estradio l 0.01% (0.1 mg/gram) vaginal cream 2023 024 [facility] #[id number], [address] [place], [address], 12/03/2023 12:52:20 triamcin olone acetonid e 0.1 % topical cream 2022 023 [id number] [address] [place], [address], 11/29/2022 11:20:48 estradio l 0.01% (0.1 mg/gram) vaginal cream 2022 023 [facility] #[id number], [address] [place], [address], 11/29/2022 11:20:48 triamcin olone acetonid e 0.1 % topical cream 2021 022 [facility] #[id number], [address] [place], [address], 11/23/2021 11:18:30 estradio l 0.01% (0.1 mg/gram) vaginal cream 2021 022 [facility] #[id number], [address] [place], [address], 11/23/2021 11:18:30 estradio l 0.01% (0.1 mg/gram) vaginal cream 2020 021 [facility] #[id number], [address] [place], [address], 11/22/2020 11:47:01 Patient TargetsNo targets recorded. Patient Instructions Encounter Date Encounter Id Patient Instructions Last Modified By Organization Details Last Modified Time 11/22/2020 [id number] atrophic vaginit is: care instructions Not available 11/22/2020 11:46:59 learning about healthy weight Not available 11/22/2020 11:46:59 She is here for annual exam, doing well. Her had hip surgery recently, and her son in law got a doctorate in Anatomy and Physiology and will be teaching in [place] 2 days a week, her life is busy. Using E2 cream as needed. She appears to be doing well. She is advised to get 1500 mg of calcium daily into her diet and supplements combined. There is a health benefit with adequate vitamin D supplementation to at least 400 units daily, daily aerobic exercise of 30 minutes, and stress reduction. Monthly self breast exam was taught, and stressed, and is advised to call if she discovers any new mass in the breast. Not available 11/22/2020 11:47:14 11/23/2021 [id number] atrophic vaginit is: care instructions Not available 11/23/2021 11:18:28 learning about healthy weight Not available 11/23/2021 11:18:28 She is here for annual exam, is doing well on the Estradiol vaginal cream and the Arisctocort, elects to continue. She would like to try the cream, the ointment is a bit thick she notes. __ Note from 2020: She is here for annual exam, doing well. Her had hip surgery recently, and her son in law got a doctorate in Anatomy and Physiology and will be teaching in [place] 2 days a week, her life is busy. Using E2 cream as needed. __ Renew estradiol vaginal cream, and the topical steroid. She appears to be doing well. She is advised to get 1500 mg of calcium daily into her diet and supplements combined. There is a health benefit with adequate vitamin D supplementation to at least 400 units daily, daily aerobic exercise of 30 minutes, and stress reduction. Monthly self breast exam was taught, and stressed, and is advised to call if she discovers any new mass in the breast. Not available 11/23/2021 11:20:26 11/29/2022 [id number] atrophic vaginit is: care instructions Not available 11/29/2022 11:20:45 learning about healthy weight Not available 11/29/2022 11:20:45 She is here for annual, bone density 12/2021 had stable osteopenia. Using aristocort cream not ointment. _ Note from 2021: She is here for annual exam, is doing well on the Estradiol vaginal cream and the Arisctocort, elects to continue. She would like to try the cream, the ointment is a bit thick she notes. ____ She appears to be doing well. She had a few deaths in her family in the past few years, her sister, her nephew, and others. She is considering seeing a therapist for depression. She is encouraged to do so. Monthly self breast exam was taught, and stressed, and is advised to call if she discovers any new mass in the breast. Not available 11/29/2022 11:34:45 12/03/2023 [id number] atrophic vaginit is: care instructions Not available 12/03/2023 12:52:17 learning about healthy weight Not available 12/03/2023 12:52:17 She is here for annual, doing well. She had an episode of pruritus over her entire vulva last , now resolved, no etiology found. _ Note from 2022: She is here for annual, bone density 12/2021 had stable osteopenia. Using aristocort cream not ointment. ____ She appears to be doing well. renew Aristocort, and estradiol vaginal creams. Monthly self breast exam was taught, and stressed, and is advised to call if she discovers any new mass in the breast. Not available 12/03/2023 12:52:48 12/03/2024 [id number] atrophic vaginit is: care instructions Not available 12/03/2024 11:09:27 learning about healthy weight Not available 12/03/2024 11:09:27 She is here for annual, doing well, due for bone density. Needs refill on estradiol vaginal cream. She will be having her cataract surgery soon. Note from 2023: She is here for annual, doing well. She had an episode of pruritus over her entire vulva last , now resolved, no etiology found. _ Note from 2022: She is here for annual, bone density 12/2021 had stable osteopenia. Using aristocort cream not ointment. She appears to be doing well. Monthly self breast exam was taught, and stressed, and is advised to call if she discovers any new mass in the breast. Not available 12/03/2024 11:10:18 Reason for Referral None Reported. Results Created Date Observation Date Name Description Value Unit Range Abnormal Flag Note LastModifiedBy Organization Detail LastModifiedTime 11/23/19 21 11/22/2020 PAP1C ASE [id number] ThinP rep Pap, Image d: NEGAT CARLO FOR SQUAM OUS INTRA EPITH ELIAL LESIO N AND VICTOR HUGO TAMAYO . React carlo cellu jet mcbride es. Hiawatha simón estro gen for patie nt's age and histo ry. Karla Tiwari a , [place]( CP) (Case Screcachorro trina 11 24 2020) Sebastien Ghosh M.D. , Patho logis t (Case elect kris cagle aden d 11 30 2020) ADEQU ACY: Satis facto ry Endoc ervic al/tr ansfo rmati on zone compo nent prese nt. SOURC E: ThinP rep Pap HPV IF Ascus : Refle x 16 and 18, Cervi [place], Image d [facility] [place] INFOR MATIO N: HPV If Diagn osis of ASCUS . LPS neg, z12.4 Not Available [facility], Cytopathology Service [address] [facility], [place], [address], 12/01/2020 16:46:00 11/24/19 22 11/23/2021 PAP1C ASE [id number] ThinP rep Pap, Image d: NEGAT CARLO FOR SQUAM OUS INTRA EPITH ELIAL LESIO N AND MALIG RONI . Jaymie Mendes , CT( CP) (Case elect kris cagle aden d 11 26 2021) ADEQU ACY: Satis facto ry Endoc ervic al/tr ansfo rmati on zone compo nent prese nt. SOURC E: ThinP rep Pap HPV IF Ascus : Refle x 16 and 18, Cervi [place], Image d [facility] [place] [facility] MAT[facility] N: HPV If Diagn osis of ASCUS . LPS neg, [Z12. 4] Not Available [facility], Cytopathology Service [address] [place], [address], 11/28/2021 07:45:59 11/30/1911/29/2022 [facility] CYTOL OGY results Patie nt Name: DANA MAX nt : [birth year] (Age: 77) Lab Acces oneil #: [id number] Colle ction Date: 023 Acces oneil Date: 023 Sign Out Date: 023 Tissu e Sourc e: 1: THINP REP PLUG STITCHER PAP TEST, CERVI [place]: Final Diagn osis: NEGAT CARLO FOR INTRA EPITH ELIAL MITZI N OR VICTOR HUGO TAMAYO . Satis facto ry for evalu ation . Endoc ervic al/tr ansfo rmati on zone prese nt. [facility] [place] Histo ry: Date of Last Menst rual Perio d: not avail able Menst rual Histo ry: not avail able Contr acept carlo Histo ry: not avail able Ancil ceci Testi ng: HPV (ASCU S) Case image d by the ThinP rep Imagi ng Syste m with felicia jacobs or andreea smith Perfo rmed at [facility] ate Refer ence Labor [facility] Cytol ogy, [address] [place] [facility]ini [place] Histo ry (othe r): Z12.4 , LPS 07/24 neg, routi ne scree n Phone #: [phone], On-Ca ll Patho logis t: [id number] Not Available [facility] (Centralized Electronic Ordering - All Locations) Patient Can Go To The Location Of Their Choice, [address] 12/01/2022 12:20:50 12/03/19 24 12/07/2023 IGP, RFX APTIM A HPV ASCU diagnosis: Jasmina MATOS FOR INTRA EPITH ELIAL LESIO N OR VICTOR HUGO TAMAYO . Not Available [facility] ([facility]) [address] [place], [address], 12/07/2023 10:07:12 12/03/19 24 12/07/2023 IGP, RFX APTIM A HPV ASCU specimen adequacy: Jasmina t Satis facto ry for evalu ation . Endoc ervic al and/o r squam ous metap lasti c cells (endo cervi [place] compo nent) are prese nt. Not Available [facility] ([facility]) [address] [place], [address], 12/07/2023 10:07:12 12/03/19 24 12/07/2023 IGP, RFX APTIM A HPV ASCU clinician provided ICD10: Jasmina finney Z12.4 Not Available [facility] ([facility]) [address] [place], [address], 12/07/2023 10:07:12 12/03/19 24 12/07/2023 IGP, RFX APTIM A HPV ASCU performed by: Julio Cesar Quiroga (ASCP ) Not Available [facility] ([facility]) [address] [place], [address], 12/07/2023 10:07:12 12/03/19 24 12/07/2023 IGP, RFX APTIM A HPV ASCU . . Not Available [facility] ([facility]) [address] [place], [address], 12/07/2023 10:07:12 12/03/19 24 12/07/2023 IGP, RFX APTIM A HPV ASCU note: Commen t The Pap smear is a scree maria elena test desig trina to aid in the detec tion of nina ligna nt and malig nant condi tions of the uteri ne cervi x. It is not a diagn ostic proce dure and shoul d not be used as the sole means of detec ting cervi [place] cance r. Both false -posi tive and false -nega tive repor ts do occur . Not Available [facility] ([facility]) [address] [facility], [place], [address], 12/07/2023 10:07:12 12/03/19 24 12/07/2023 IGP, RFX APTIM A HPV ASCU test methodology: Commen t This liqui d based ThinP rep(R ) pap test was scree trina with the use of an image guide hilario jenkins. Not Available [facility] ([facility]) [address] [facility], [place], [address], 12/07/2023 10:07:12 12/03/19 24 12/07/2023 IGP, RFX APTIM A HPV ASCU . Commen t The HPV DNA refle x crite farhan were not met with this speci men resul t there fore, no HPV testi ng was perfo rmed. Not Available [facility] ([facility]) [address] [facility], [place], [address], 12/07/2023 10:07:12 12/04/19 25 12/04/2024 IGP, RFX APTIM A HPV ASCU diagnosis: Commen t NEGAT CARLO FOR INTRA EPITH ELIAL LESIO N OR MALIG RONI . Not Available [facility] ([facility]) [address] [place], [address], 12/04/2024 16:16:58 12/04/19 25 12/04/2024 IGP, RFX APTIM A HPV ASCU specimen adequacy: Commen t Satis facto ry for evalu ation . Not Available [facility] ([facility]) [address] [place], [address], 12/04/2024 16:16:58 12/04/19 25 12/04/2024 IGP, RFX APTIM A HPV ASCU clinician provided ICD10: Jasmina finney Z12.4 Not Available [facility] ([facility]) [address] [place], [address], 12/04/2024 16:16:58 12/04/19 25 12/04/2024 IGP, RFX APTIM A HPV ASCU performed by: Jasmina Braswell , Cytol ogist (ASCP ) Not Available [facility] ([facility]) [address] [place], [address], 12/04/2024 16:16:58 12/04/19 25 12/04/2024 IGP, RFX APTIM A HPV ASCU . . Not Available [facility] ([facility]) [address] [place], [address], 12/04/2024 16:16:58 12/04/19 25 12/04/2024 IGP, RFX APTIM A HPV ASCU note: Jasmina finney The Pap smear is a scree maria elena test desig trina to aid in the detec tion of nina ligna nt and malig nant condi tions of the uteri ne cervi x. It is not a diagn ostic proce dure and shoul d not be used as the sole means of detec ting cervi floriad cance r. Both false -posi tive and false -nega tive repor ts do occur . Not Available [facility] ([facility]) [address] [place], [address], 12/04/2024 16:16:58 12/04/19 25 12/04/2024 IGP, RFX APTIM A HPV ASCU test methodology: Jasmina finney This liqui d based ThinP rep(R ) pap test was scree trina with the use of an image guide hilario mai Not Available [facility] ([facility]) [address] [facility], [place], [address], 12/04/2024 16:16:58 12/04/19 25 12/04/2024 IGP, RFX APTIM A HPV ASCU . Commen t The HPV DNA refle x crite farhan were not met with this speci men resul t there fore, no HPV testi ng was perfo rmed. Not Available [facility] ([facility]) [address] [facility], [place], [address], 12/04/2024 16:16:58 04/18/20 21 04/15/2021 MAMMO , scree maria elena, digit al, bilat eral No observ ation record ed. Not Available 03/31 09:00:40 01/19/20 22 01/17/2022 bone densi ty No observ ation record ed. Not Available 2021 09:45:24 04/26/20 22 04/26/2022 MAMMO , scree maria elena, digit al, bilat eral No observ ation record ed. Not Available 03/31 08:39:02 05/01/19 24 05/01/2023 MAMMO , scree maria elena, digit al, bilat eral No observ ation record ed. [address], [address], 05/01/2023 14:31:12 Result Notes None recorded. Problems Name Problem SNOMED Code Status Onset Date Resolution Date Notes Provider Name and Address Organization Details Recorded Time Thyroiditis 99909985 Active Not Available [facility] 3 03:01:03 Postmenopausa l bleeding 11419244 Active Not Available [facility] 3 03:01:03 Atrophic vulvovaginiti s 85177923 Active Kenya Hutchinson MD [address] [facility] [address], [place], [address] , [place] [facility], 5 11:16:07 Senile osteopenia 42521180 Active Not Available [facility] 3 03:01:03 Breast lump 42661502 Active Not Available [facility] 3 03:01:03 Dysuria 15826825 Active Not Available [facility] 3 03:01:03 Lichen sclerosus et atrophicus Active Kenya Hutchinson MD [address], [place], [address] , [place] [facility], 4 10:48:27 On examination - pelvic mass palpated Active Kenya Hutchinson MD [address], [place], , [place] [facility], 4 10:48:27 Mammography abnormal 966029491 Active Kenya Hutchinson MD [address], [place], , [place] [facility], 4 09:49:16 Candidiasis of skin 05610980 Active Kenya Hutchinson MD [address], [place], , [place] [facility], 5 14:39:37 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 Procedures Surgical History Date Name Laterality Status Provider Name and Address Organization Details Recorded Time 05/01/19 25 Most Recent Mammogram completed Vita Rivera [place] - [facility], 12/03/2024 10:52:21 01/18/20 22 Most Recent Bone Density completed Vita Meczywor [place] - [facility], 11/29/2022 11:11:39 04/30/19 07 Other completed Vita Meczywor [place] [facility], 11/05/2013 10:17:58 04/30/19 06 Other completed Vita Meczywor [place] [facility], 11/06/2011 09:23:01 04/30/18 60 Tonsillectomy completed Vita Meczywor [place] - [facility], 11/05/2013 10:17:58 Imaging Results None recorded. Procedure Notes None recorded. Medical Equipment None Reported. Allergies Allergen ID Allergen Name Allergen Category Reaction Reaction Severity Criticality Documentation Date Start Date Code Code System Note Provider Name and Address Organization Details Recorded Time 41254 ketoconaz ole medicatio n other moderate Not available 09/25/2014 6135 RxNorm burni ng on skin Nidia Arredondo topher, [place] [facility], 5 14:20:37 15265 neomycin medicatio n rash Not available Not available 11/19/2017 7299 RxNorm Vita Meczywor null, [place] [facility], 8 10:43:19 2341 cephalexi n medicatio n diarrhea Not available Not available 11/06/2011 2231 RxNorm Vita Meczywor null, [place] [facility], 2 09:23:01 2342 Librax medicatio n diarrhea Not available Not available 11/06/2011 39790 RxNorm Vita Meczywor null, [place] [facility], 2 09:23:01 2343 latex environme nt,medica tion rash Not available Not available 11/06/2011 88982 91 RxNorm Vita Meczywor null, [place] [facility], 2 09:23:01 2344 Vioxx medicatio n other Not available Not available 11/06/2011 30020 9 RxNorm Vita Meczywor null, [place] [facility], 2 09:23:01 2345 midazolam hydrochlo ride medicatio n vomiting Not available Not available 11/06/2011 98337 8 RxNorm Vita Meczywor null, [place] [facility], 2 09:23:01 2346 codeine medicatio n other Not available Not available 11/06/2011 2670 RxNorm Vita Meczywor null, [place] [facility], 2 09:23:01 2347 Levaquin medicatio n diarrhea Not available Not available 11/06/2011 26081 2 RxNorm Vita Meczywor [place], [place] [facility], 2 09:23:01 2348 Bactrim medicatio n diarrhea Not available Not available 11/06/2011 70733 9 RxNorm Vita Meczywor null, [place] [facility], 2 09:23:01 2349 Cipro medicatio n diarrhea Not available Not available 11/06/2011 85078 3 RxNorm Vita Meczywor null, [place] [facility], 2 09:23:01 2350 Product containin g penicilli n (product) medicatio n diarrhea Not available Not available 11/06/2011 55576 8001 SNOMED Vita Meczywor null, [place] [facility], 2 09:23:01 8982 Substance with sulfonami de structure and antibacte rial mechanism of action (substanc e) medicatio n diarrhea Not available Not available 11/05/2012 53202 8003 SNOMED Vita Meczywor null, [place] [facility], 3 10:59:37 8983 adhesive environme nt,medica tion rash Not available Not available 11/05/2012 Vita Meczywor null, [place] [facility], 3 10:59:37 Medications Name Sig Start Date Stop Date Status Note LastModified by Organization Details LastModified Time triamcinolo n oin 0.1% active Not Available Not Available N ot Available cyclobenzap rine 10 mg tablet TAKE 1 TABLET BY MOUTH EVERY 8 HOURS 11/29 completed Not Available Not Available Not Available prednisolon e sodium phosphate 15 mg/5 mL (3 mg/mL) oral solution active Not Available Not Available Not Available clindamycin HCl 300 mg capsule 11/19 completed Not Available Not Available Not Available cetirizine 10 mg tablet TAKE 1 TABLET BY MOUTH EVERY DAY 12/03 completed Not Available Not Available Not Available atorvastati n 10 mg tablet TAKE 1 TABLET BY MOUTH 1 TIME EACH DAY. active Not Available Not Available No t Available azithromyci n 250 mg tablet TAKE 2 TABLETS BY MOUTH TODAY, THEN TAKE 1 TABLET DAILY FOR 4 DAYS 11/19 completed Not Available Not Available Not Available fluconazole 150 mg tablet Take 1 tablet every day by oral route for 1 day. active Not Available Not Available No t Available benzonatate 200 mg capsule TAKE 1 CAP BY MOUTH 3 TIMES DAILY NEEDED (FOR COUGH). 12/03 completed Not Available Not Available Not Available clarithromy pablo 500 mg tablet active Not Available Not Available Not Available Nystop 100,000 unit/gram topical powder APPLY TO THE AFFECTED AREA(S) BY TOPICAL ROUTE 3 TIMES PER DAY as needed active Not Available Not Available No t Available prednisone 20 mg tablet active Not Available Not Available Not Available naproxen 250 mg tablet TAKE 1 TABLET BY MOUTH 2 TIMES DAILY (WITH MEALS). active Not Available Not Available No t Available clindamycin HCl 150 mg capsule TAKE ONE CAPSULE BY MOUTH 4 TIMES A DAY FOR 7 DAYS 11/07 completed Not Available Not Available Not Available topiramate 25 mg tablet TAKE 1 TABLET BY MOUTH EVERY DAY active Not Available Not Available No t Available triamcinolo ne acetonide 0.1 % topical cream APPLY TO AFFECTED AREA TWICE A DAY active Not Available Not Available No t Available ketorolac 0.5 % eye drops INSTILL 1 DROP IN OPERATIVE EYE TWICE A DAY START 2 DAYS PRIOR TO SURGERY active Not Available Not Available No t Available flaxseed oil 1,000 mg capsule take 4 by mouth daily active Not Available Not Available No t Available famotidine 20 mg tablet 11/07 completed Not Available Not Available Not Available clarithromy pablo ER 500 mg tablet,exte nded release 24 hr 01/24 completed Not Available Not Available Not Available methocarbam ol 750 mg tablet active Not Available Not Available Not Available erythromyci n 5 mg/gram (0.5 %) eye ointment APPLY INTO RIGHT EYE AT BEDTIME 11/19 completed Not Available Not Available Not Available triamcinolo ne acetonide 0.1 % topical ointment APPLY TOPICALLY TWICE A DAY NEEDED active Not Available Not Available No t Available calcipotrie ne 0.005 % topical cream APPLY TO ECZEMA TWICE A DAY 11/19 completed Not Available Not Available Not Available clotrimazol e-betametha sone 1 %-0.05 % topical cream APPLY 1 A SMALL AMOUNT TOP TWICE A DAY APPLY WITH FINGERTIP TO EXTERNAL EAR NEEDED FOR ITCHING 12/03 completed Not Available Not Available Not Available losartan 25 mg tablet TAKE 1 TABLET BY MOUTH EVERYDAY AT BEDTIME active Not Available Not Available No t Available polyethylen e glycol 3350 17 gram/dose oral powder active Not Available Not Available Not Available estradiol 0.01% (0.1 mg/gram) vaginal cream INSERT 0.5 G EVERY DAY BY VAGINAL ROUTE FOR 85 DAYS. active Not Available Not Available No t Available albuterol sulfate HFA 90 mcg/actuati on aerosol inhaler INHALE 2 PUFFS INTO THE LUNGS EVERY 6 HOURS NEEDED FOR COUGH, WHEEZING OR SHORTNESS OF BREATH. active Not Available Not Available No t Available ketoconazol e 2 % topical cream 01/24 completed Not Available Not Available Not Available fluticasone propionate 50 mcg/actuati on nasal spray,suspe nsion SPRAY 1-2 SPRAYS IN EACH NOSTRIL DAILY NEEDED FOR CONGESTIO N active Not Available Not Available No t Available tobramycin 0.3 %-dexametha sone 0.1 % eye drops,suspe nsion PLACE 1 DROP INTO THE RIGHT EYE TIMES DAILY FOR 7 DAYS 11/19 completed Not Available Not Available Not Available Daily Multi-Vitam in tablet active Not Available Not Available No t Available lactulose 10 gram/15 mL oral solution active Not Available Not Available Not Available Adacel (Tdap Adolesn/Mike lt)(PF)2Lf- (2.5-5-3-5m cg)-5 Lf/0.5 mL IM susp active Not Available Not Available Not Available Vitamin C active Not Available Not Beatriz ilable Not Available vitamin A active Not Available Not Beatriz ilable Not Available cholecalcif radha (vitamin D3) take 6 daily active Not Available Not Available No t Available fiber active Not Available Not Availa ble Not Available Calcium 500 4 tabs by mouth active Not Available Not Available No t Available Clovis Oil-1000 11/23 completed Not Available Not Available Not Available Evening Palmer tales 6 per day 11/23 completed Not Available Not Available Not Available triamcinolo ne acetonide (bulk) 0.1 % oint for itiching active Not Available Not Available No t Available Daily Stress Vitamin 11/22 completed Not Available Not Available Not Available vitamin B comp and C no.3 active Not Available Not Available Not Available Detox Dietary capsule Take by oral route. 11/20 completed Not Available Not Available Not Available diclofenac 1 % topical gel APPLY 5 GRAMS TOPICALLY 5 TIMES DAILY. NEEDED 12/03 completed Not Available Not Available Not Available Joint Support 11/23 completed Not Available Not Available Not Available Gavilyte-C 240 gram-22.72 gram-6.72 gram-5.84 gram oral solution 11/19 completed Not Available Not Available Not Available Cleanse and Treat Plus active Not Available Not Available N ot Available Probiotic active Not Available Not Beatriz ilable Not Available Bioflavonoi ds, [facility] active Not Available Not Available N ot Available Multi Vitamin active Not Available Not Available Not Available Fluzone High-Dose 2019-20 (PF) 180 mcg/0.5 mL intramuscul ar syringe inject 0.5 millilite rs intramusc ularly active Not Available Not Available No t Available BinaxNOW COVID-19 Ag Self Test kit TEST DIRECTED TODAY active Not Available Not Available No t Available Vitals Date Recorded Body height Body mass index (BMI) Body weight Heart rate Systolic And Diastolic Provider Name and Address Organization Details Last Updated DateTime 11/22/2020 152.4 cm 32.2 kg/m2 39487.74 g 71 /min 156/62 mm[Hg] Yomaira Alexandre [facility] - [facility], 11/22/2020 10:48:54 Date Recorded Body weight Body mass index (BMI) Body height Heart rate Systolic And Diastolic Provider Name and Address Organization Details Last Updated DateTime 11/23/2021 66049.19 g 31.1 kg/m2 152.4 cm 78 /min 190/76 mm[Hg] Yomaira Smith in [facility], 11/23/2021 10:58:28 Date Recorded Body height Body mass index (BMI) Body weight Heart rate Systolic And Diastolic Provider Name and Address Organization Details Last Updated DateTime 11/29/2022 153.67 cm 32.3 kg/m2 45013.24 g 66 /min 175/70 mm[Hg] Vita Smith in [facility], 11/29/2022 11:13:33 Date Recorded Body weight Body mass index (BMI) Body height Heart rate Systolic And Diastolic Provider Name and Address Organization Details Last Updated DateTime 12/03/2023 82785.26 g 33.8 kg/m2 153.67 cm 79 /min 179/68 mm[Hg] Vita Smith in [facility], 12/03/2023 10:56:43 Date Recorded Body height Heart rate Body mass index (BMI) Body weight Systolic And Diastolic Provider Name and Address Organization Details Last Updated DateTime 12/03/2024 152.4 cm 76 /min 35.3 kg/m2 87475.22 g 182/61 mm[Hg] Vita Smith in [facility], 12/03/2024 10:47:17 Social History Question Answer Notes LastModified by Organizat ion Details LastModified Time Tobacco Smoking Status Never Smoker Not Available [facility] 03/02/2020 03:19:42 Are You Blind Or Do You Have Difficulty Seeing? No [id number] Information not available 03/02/2020 What Is Your Level Of Caffeine Consumption? None Chocolate Information not available 11/23/2021 In The 14 Days Before Symptom Onset, Have You Had Close Contact With A Laboratory-confir med COVID-19 While That Case Was Ill? No Information not available 11/22/2020 In The 14 Days Before Symptom Onset, Have You Had Close Contact With A Person Who Is Under Investigation For COVID-19 While That Person Was Ill? No Information not available 11/22/2020 Have You Been To An Area Known To Be High Risk For COVID-19? No Information not available 11/22/2020 Are You Deaf Or Do You Have Serious Difficulty Hearing? No [id number] Information not available 03/02/2020 What Type Of Diet Are You Following? REGULAR Information not available 12/03/2024 Which Illicit Or Recreational Drugs Have You Used? No [id number] Information not available 03/02/2020 Do You Reside In Or Have You Traveled To An Area Where Ebola Virus Transmission Is Active? No [id number] Information not available 03/02/2020 Education 4 Year College Information not available 11/06/2011 How Many Days In The Past Year Have You Had A Heavy Drinking Consumption (4+ Female, 5+ Male)? 0 Information no t available 01/24/2017 Are There Any Guns Present In Your Home? No Information not available 11/23/2021 High Number Of Sexual Partners No Information not available 11/08/2015 To Which Gender Do You Self-identify? Female Information not available 11/08/2015 Marital Status Informatio n not available 11/06/2011 What Was The Date Of Your Most Recent Tobacco Screening? 12/03/2024 Information not available 12/03/2024 What Is Your Relationship Status? Information not available 11/23/2021 Are You Sexually Active? Yes [id number] Information not available 03/02/2020 How Much Tobacco Do You Smoke? No [id number] Information not available 03/02/2020 General Stress Level Medium Information not available 12/03/2024 Do You Have Difficulty Walking Or Climbing Stairs? No [id number] Information not available 03/02/2020 Have You Recently (within The Last 12 Weeks, Or During A Current ) Traveled To Or Lived In A Zika-affected Area? No Information not available 11/08/2015 How Many Days In The Past Year Have You Consumed 4 Or More Drinks? 0 Information no t available 12/03/2023 Sex: Female Functional Status Question Answer Note LastModified by Organizat ion Details LastModified Time Do you use any illicit or recreational drugs? No Information not available 11/23/2021 Do you or have you ever used any other forms of tobacco or nicotine? No Information not available 11/23/2021 What is your level of alcohol consumption? Occasional very occ. [id number] Information not available 03/02/2020 Do you or have you ever used smokeless tobacco? Never used smokeless tobacco [id number] Information not available 03/02/2020 Are you currently employed? No Information not available 11/23/2021 Do you have difficulty doing errands alone? No [id number] Information not available 03/02/2020 What is your occupation? retired Information not available 11/06/2011 Do you have difficulty dressing, bathing, grooming, or toileting? No [id number] Information not available 03/02/2020 Do you or have you ever used e-cigarettes or vape? Never used electronic cigarettes [id number] Information not available 03/02/2020 What is your exercise level? Occasional Information not available 12/03/2024 Mental Status Question Answer Note LastModified by Organizat ion Details LastModified Time Do you feel stressed (tense, restless, nervous, or anxious, or unable to sleep at night)? [id number] Information not available 12/03/2024 Do you have difficulty concentrating, remembering or making decisions? No [id number] Information no t available 03/02/2020 Family History Relationship Description Onset Age of this Age Resolved Age Notes LastModified by Organization Details LastModified Time Mother Anemia deceas ed. in may. Not available 11/05/2014 11:15:43 Mother Problem legall y blind (previ ously record ed as Other) Not available 11/05/2014 11:15:43 Sister Hypertensive disorder previo usly record ed as Hypert ension Not available 11/05/2014 11:15:43 Sister Diabetes mellitus previo usly record ed as Diabet es Not available 11/05/2014 11:15:43 Sister Malignant neoplasm of breast 65 Ductal carcin keila. Also diagno sed with cancer in one lymphn ode. Not available 11/22/2020 10:52:11 Father Myocardial infarction previo usly record ed as Heart Attack (VT) Not available 11/05/2014 11:15:43 Notes:sister with lung issue Medical History Condition Response Anesthesia complications Y High Blood Pressure Y Autoimmune Condition Y Kidney or Bladder Problems Y Thyroid Problems Y GI Problems N Lung Disease N Depression N Defects or Inherited Disease N History of Ovarian Cancer N Anemia N History of Breast Cancer N LOLA exposure N BRCA testing in past N Osteopenia Y Psychiatric Illness N Anxiety Disorder N Diabetes N Arthritis Y Headaches or Migraines Y Infertility N Asthma Y History of Cancer N Endometriosis N Hepatitis N Heart Disease N Hypertension Y Osteoporosis N Gynecological History Statement/Question Response If Post Menopausal, Age at Menopause 52 Age at Menarche 15 Most Recent Mammogram 05/01/2024 Age at First Child 28 Most Recent Bone Density 01/17/2022 Obstetrics History GPAL:G 3 P 3 0 0 3 Type Value Full Term 3 Living 3 Total 3 Immunizations Vaccine Type Date Status Note Provider Nam e and Address Organization Details Recorded Time COVID-19, mRNA, LNP-S, PF, 100 mcg/0.5mL dose or 50 mcg/0.25mL dose 1 completed Kenya Hutchinson MD [address] [facility],[address], [place], [address], [place] [facility], 06/08/2020 13:00:19 COVID-19, mRNA, LNP-S, PF, 100 mcg/0.5mL dose or 50 mcg/0.25mL dose 1 completed Kenya Hutchinson MD [address] [facility],[address], [place], [address], [place] - [facility], 07/06/2020 11:50:27 Influenza, split virus, quadrivalent, preservative 5 completed NATHALIE Valdes in [facility], 11/08/2015 10:11:39 zoster recombinant 1 completed NATHALIE Valdes in [facility], 11/29/2022 11:12:57 zoster recombinant 1 completed Vita Meczywor null, [place] [facility], 11/29/2022 11:12:57 Influenza, high-dose, quadrivalent, PF 2 completed Vita Meczywor null, [place] [facility], 11/29/2022 11:12:57 Influenza, adjuvanted, quadrivalent, PF 1 completed Vita Meczywor null, [place] - [facility], 11/29/2022 11:12:57 COVID-19, mRNA, LNP-S, PF, 100 mcg/0.5mL dose or 50 mcg/0.25mL dose 2 completed Vita Meczywor null, [place] [facility], 11/29/2022 11:12:57 COVID-19, mRNA, LNP-S, PF, 100 mcg/0.5mL dose or 50 mcg/0.25mL dose 1 completed Vita Meczywor null, [place] - [facility], 11/29/2022 11:12:57 COVID-19, mRNA, LNP-S, bivalent, PF, 50 mcg/0.5 mL or 25mcg/0.25 mL dose 3 completed Vita Meczywor null, [place] [facility], 11/29/2022 11:12:57 COVID-19, mRNA, LNP-S, bivalent, PF, 50 mcg/0.5 mL or 25mcg/0.25 mL dose 2 completed Vita Meczywor null, [place] [facility], 11/29/2022 11:12:57 pneumococcal polysaccharide PPV23 2 completed Vita Meczywor null, [place] - [facility], 11/29/2022 11:12:57 Tdap 4 completed Vita Meczywor null, [place] - [facility], 11/29/2022 11:12:57 Pneumococcal conjugate PCV 13 6 completed Vita Meczywor null, [place] [facility], 11/29/2022 11:12:57 zoster live 0 completed Vita Meczywor null, [place] [facility], 11/29/2022 11:12:57 zoster live 0 completed Vita Meczywor null, [place] [facility], 11/29/2022 11:12:57 influenza, [id number] 1 completed Vita Meczywor null, [place] [facility], 11/29/2022 11:12:57 Influenza, high-dose, trivalent, PF 2 completed Vita Meczywor null, [place] [facility], 11/29/2022 11:12:57 Influenza, high-dose, trivalent, PF 5 completed Vita Meczywor null, [place] [facility], 11/29/2022 11:12:57 Influenza, high-dose, trivalent, PF 8 completed Vita Meczywor null, [place] [facility], 11/29/2022 11:12:57 Influenza, high-dose, trivalent, PF 7 completed Vita Meczywor null, [place] [facility], 11/29/2022 11:12:57 Influenza, high-dose, trivalent, PF 0 completed Vita Meczywor null, [place] [facility], 11/29/2022 11:12:57 Influenza, high-dose, trivalent, PF 9 completed Vita Meczywor null, [place] [facility], 11/29/2022 11:12:57 Influenza, high-dose, trivalent, PF 6 completed Vita Meczywor null, [place] [facility], 11/29/2022 11:12:57 Influenza, split virus, trivalent, preservative 2 completed Vita Meczywor null, [place] [facility], 11/29/2022 11:12:57 Influenza, split virus, trivalent, preservative 3 completed Vita Meczywor null, [place] [facility], 11/29/2022 11:12:57 Influenza, split virus, trivalent, preservative 4 completed Vita Meczywor null, [place] [facility], 11/29/2022 11:12:57 Influenza, split virus, trivalent, preservative 0 completed Vita Meczywor null, [place] [facility], 11/29/2022 11:12:57 Influenza, split virus, trivalent, preservative 9 completed Vita Meczywor null, [place] [facility], 11/29/2022 11:12:57 Influenza, split virus, trivalent, preservative 1 completed Vita Meczywor null, [place] [facility], 11/29/2022 11:12:57 Influenza, split virus, trivalent, preservative 7 completed Vita Meczywor null, [place] [facility], 11/29/2022 11:12:57 Influenza, split virus, trivalent, preservative 4 completed Vita Meczywor null, [place] [facility], 11/29/2022 11:12:57 Influenza, split virus, trivalent, preservative 8 completed Vita Meczywor null, [place] [facility], 11/29/2022 11:12:57 Influenza, split virus, trivalent, preservative 3 completed Vita Meczywor null, [place] [facility], 11/29/2022 11:12:58 Influenza, split virus, trivalent, preservative 5 completed Vita Meczywor null, [place] [facility], 11/29/2022 11:12:58 Influenza, split virus, trivalent, preservative 6 completed Vita Meczywor null, [place] [facility], 11/29/2022 11:12:58 Influenza, split virus, trivalent, preservative 2 completed Vita Meczywor null, [place] [facility], 11/29/2022 11:12:58 Novel [id number], preservative-free 9 completed Vita Meczywor null, [place] [facility], 11/29/2022 11:12:58 Hep B, adult 3 completed Vita Meczywor null, [place] [facility], 11/29/2022 11:12:58 Hep B, adult 2 completed Vita Meczywor null, [place] [facility], 11/29/2022 11:12:58 Hep B, adult 2 completed Vita Meczywor null, [place] [facility], 11/29/2022 11:12:58 COVID-19, mRNA, LNP-S, PF, 50 mcg/0.5 mL 3 completed Not Available [facility] 12/03/2024 10:30:43 COVID-19, mRNA, LNP-S, PF, 50 mcg/0.5 mL 5 completed Not Available [facility] 12/03/2024 10:30:43 Influenza, adjuvanted, quadrivalent, PF 3 completed Not Available [facility] 12/03/2024 10:30:43 Pneumococcal conjugate PCV20, polysaccharide [id number] conjugate, adjuvant, PF 3 completed Not Available [facility] 12/03/2024 10:30:43 RSV, bivalent, protein subunit RSVpreF, diluent reconstituted, 0.5 mL, PF 3 completed Not Available [facility] 12/03/2024 10:30:43 Influenza, high-dose, trivalent, PF 4 completed Not Available [facility] 12/03/2024 10:30:43 Tdap 5 completed Not Available [facility] 12/03/2024 10:30:43 COVID-19, mRNA, LNP-S, PF, 50 mcg/0.5 mL 4 completed Not Available [facility] 12/03/2024 10:30:43 Past Encounters Encounter ID Performer Location Encounter Start Date Encounter Closed Date Diagnosis/Indication Diagnosis SNOMED-CT Code Diagnosis ICD10 Code Diagnosis IMO Codes Diagnosis Note [id number] MD KENYA Brumfield MD [address] [facility],[place] [address] 11/06/2011 08:49:46 11/06/2011 12:00:00 [id number] MD KENYA Brumfield MD [address] [facility] [address] 11/05/2012 10:44:35 11/05/2012 15:19:13 [id number] MD KENYA Brumfield MD [address] [facility] [place] [address] 11/28/2011 09:41:12 11/29/2011 07:58:56 [id number] MD KENYA Brumfield MD [address] [facility] [place] [address] 05/23/2012 14:22:21 05/24/2012 09:38:51 [id number] MD KENYA Brumfield MD [address] [facility] [address] 06/04/2012 14:20:59 06/05/2012 11:48:42 [id number] MD KENYA Brumfield MD [address] [facility] [address] 11/05/2013 09:50:44 11/05/2013 10:55:56 Screening for malignant neoplasm of cervix 099388047 Screening mammography 75931219 Atrophic vulvovaginitis 45062268 Lichen scl erosus et atrophicus 55124071 On examina tion - pelvic mass palpated 274878022 [id number] MD KENYA Brumfield MD [address] [place] [address], [place] [address] 09/25/2014 14:07:38 09/25/2014 15:52:12 Candidiasis of skin 81921977 [id number] MD KENYA Brumfield MD [address] [place] [address], [place] [address] 11/05/2014 10:43:14 11/05/2014 12:14:42 Atrophic vulvovaginitis 24734048 Specialize d medical examination 83792242 Screening for malignant neoplasm of rectum 829040077 Screening mammography 17816697 [id number] MD KENYA Brumfield MD [address] [place] [address], [place] [address] 11/08/2015 09:56:31 11/08/2015 11:46:11 Dysuria 01252267 R30.0 Screening for malignant neoplasm of cervix 300095706 Z12.4 Screening mammography 24 617014 Z12.31 [id number] MD KENYA Brumfield MD [address] [place] [address], [place] [address] 01/24/2017 10:50:55 01/25/2017 08:16:59 Excessive vitamin intake 1906142756 39972 E67.8 Senile osteopenia 526929 06 M85.851 Cares for self 897523858 Z76.89 Multiple v itamin excess disease 85324655 E67.8 [id number] MD KENYA Brumfield MD [address] [place] [address], [place] [address] 05/10/2017 10:55:57 05/10/2017 15:07:54 Atrophic vaginitis 12091220 N95.2 Postmenopa usal bleeding 58702724 N95.0 Cystocele 498125829 N81. 11 [id number] MD KENYA Brumfield MD [address] [place] [address], [place] [address] 11/19/2017 10:09:54 11/19/2017 12:02:43 Screening for malignant neoplasm of cervix 589112036 Z12.4 Screening mammography 24 769722 Z12.31 Lichen scl erosus et atrophicus 54324739 L90.0 Excessive dietary intake of vitamin E 029341076 E67.8 Cares for self 940808672 Z76.89 [id number] MD KENYA Brumfeild MD [address] [place] [address] 11/19/2018 09:51:39 11/19/2018 11:46:48 Screening for malignant neoplasm of cervix 854564397 Z12.4 Screening mammography 24 615959 Z12.31 Screening for osteoporosis 746507259 Z13.820 Lichen scl erosus et atrophicus 02328862 L90.0 Atrophic vulvovaginitis 86949226 N95.2 [id number] MD KENYA Brumfield MD [address] [place] [address] 11/21/2019 09:57:28 11/21/2019 11:36:27 Screening for osteoporosis 513040871 Z13.820 Atrophic vulvovaginitis 41308444 N95.2 Lichen scl erosus et atrophicus 52221172 L90.0 Screening for malignant neoplasm of cervix 504540716 Z12.4 Screening mammography 24 258827 Z12.31 [id number] MD KENYA Brumfield MD [address] [place] [id number] 06/08/2020 11:56:35 06/08/2020 13:28:53 Administration of viral vaccine 13124223 Z23 [id number] MD KENYA Brumfield MD [address] [place] [id number] 07/06/2020 11:34:56 07/06/2020 13:01:50 Administration of viral vaccine 18014167 Z23 [id number] MD KENYA Brumfield MD [address] [place] [id number] 11/22/2020 10:42:34 11/22/2020 11:55:13 Screening for malignant neoplasm of cervix 104075095 Z12.4 Screening mammography 24 896828 Z12.31 Screening for osteoporosis 955751875 N95.8 Atrophic vulvovaginitis 68167256 N95.2 [id number] MD KENYA Brumfield MD [address] [place] [id number] 11/23/2021 10:53:26 11/23/2021 11:48:57 Screening for malignant neoplasm of cervix 662790758 Z12.4 Screening mammography 24 994756 Z12.31 Screening for osteoporosis 369383176 N95.8 Atrophic vulvovaginitis 31737406 N95.2 Genital li schulte sclerosus 312623027 L90.0 [id number] MD KENYA Brumfield MD [address] [place] [id number] 11/29/2022 10:55:38 11/29/2022 11:37:36 Atrophic vulvovaginitis 80251851 N95.2 Genital li schulte sclerosus 274071381 L90.0 Screening for malignant neoplasm of cervix 136682464 Z12.4 Screening mammography 24 253327 Z12.31 Screening for osteoporosis 614642302 N95.8 [id number] MD KENYA Brumfield MD [address] [place] [id number] 12/03/2023 10:52:28 12/03/2023 15:53:53 Screening for malignant neoplasm of cervix 198058738 Z12.4 Screening mammography 24 689618 Z12.31 Screening for osteoporosis 709348621 N95.8 Atrophic vulvovaginitis 57062336 N95.2 Lichen scl erosus et atrophicus 07141570 L90.0 [id number] MD KENYA Brumfield MD [address] [place] [id number] 12/03/2024 10:29:43 12/03/2024 11:44:46 Screening for malignant neoplasm of cervix 431508032 Z12.4 Screening mammography 24 572716 Z12.31 Screening for osteoporosis 082199900 N95.8 Atrophic vulvovaginitis 51617609 N95.2 Health Concerns Section Related Observation LastModified by Organization Detai ls LastModified Time None Recorded Concern Status LastModified by Organization Details LastModified Time None Recorded Advance Directives Directive None Recorded Payers Insurance Date Sequence Insurance Name Policy Number Policy Nielson Covered Member ID Nielson Member ID Guarantor Name 12/13/2013 1 [facility] [id number] Manuel Valera [id number] Dana Diaarais 11/30/2024 1 [facility] - MEDICARE ADVANTAGE PLAN (MEDICARE REPLACEMENT HMO) [id number] Dana Diaarais [id number] Dana Soto 07/06/2020 GENERIC MEDICARE - PART B (MOVED TO HOLD) [id number] Dana Soto [id number] Dana Jaimesis 11/29/2022 MEDICARE B-[place]: [email or web address] Dana Jenkins Soto [id number] Dana Soto Notes Date Note Type Note Provider Name and Address Organization Details Recorded Time 11/22/2020 text/html She is here for annual exam, doing well. Her had hip surgery recently, and her son in law got a doctorate in Anatomy and Physiology and will be teaching in [place] 2 days a week, her life is busy. Kenya Hutchinson MD [address] [facility],[address], [place], [id number], [place] - [facility], 11/22/2020 11:48:02 11/23/2021 text/html She is here for annual exam, is doing well on the Estradiol vaginal cream and the Aristocort, elects to continue. She would like to try the cream, the ointment is a bit thick she notes. ____ Note from 2020: She is here for annual exam, doing well. Her had hip surgery recently, and her son in law got a doctorate in Anatomy and Physiology and will be teaching in [place] 2 days a week, her life is busy.Using E2 cream as needed. Kenya Hutchinson MD [address] [facility],[address], [place], [phone], [place] - [facility], 11/23/2021 11:35:18 11/29/2022 text/html She is here for annual, bone density 12/2021 had stable osteopenia. Using aristocort cream not ointment. Note from 2021: She is here for annual exam, is doing well on the Estradiol vaginal cream and the Arisctocort, elects to continue. She would like to try the cream, the ointment is a bit thick she notes. Kenya Hutchinson MD [address], [place], [phone], [place] - [facility], 11/29/2022 11:35:07 12/03/2023 text/html She is here for annual, doing well. She had an episode of pruritus over her entire vulva last day, now resolved, no etiology found. Note from 2022: She is here for annual, bone density 12/2021 had stable osteopenia. Using aristocort cream not ointment. Kenya Hutchinson MD [address], [place], [id number], [place] - [facility], 12/03/2023 12:53:15 12/03/2024 text/html She is here for annual, doing well, due for bone density. __ Note from 2023: She is here for annual, doing well. She had an episode of pruritus over her entire vulva last day, now resolved, no etiology found. Note from 2022: She is here for annual, bone density 12/2021 had stable osteopenia. Using aristocort cream not ointment. Kenya Hutchinson MD [address], [place], [id number], [place] - [facility], 12/03/2024 11:10:39 OBGyn Episode No OBEpisode recorded.
--- OUTSIDE RECORDS SUMMARY | 2025-04-29 12:46 | XMS_ITS | Clinical Summary ---
Author Organization [facility] [address] [facility] Address [address] [place] [address] Phone Care Team Providers Care Soft Hat Binder Name Role Phone Sterling Templeton MD Primary Care Provider [phone] Allergies Active Allergy Reactions Criticality Noted Date Comments Bacitracin Hives 03/10/2025 Cephalexin 03/08/2005 Other Reaction(s): VOMIT/DIARRHEA Ciprofloxacin 03/08/2005 Other Reaction(s): VOMIT/DIARRHEA Codeine Nausea And Vomiting 07/15/2010 Latex 03/08/2005 Levofloxacin Diarrhea 03/08/2005 Midazolam Nausea And Vomiting,Unknown 11/15/2006 Pfhlm-Pvxww-Nhxvemv-Pr amoxine Swelling 12/22/2023 Penicillins Diarrhea,Hives 10/15/2006 Rofecoxib Other 03/08/2005 Sulfamethoxazole-Trime thoprim Diarrhea 05/05/2014 Zebrax Hallucinations High 05/05/2014 Medications aspirin 81 mg chewable tablet Chew 1 tablet (81 mg total). Active calcipotriene (DOVONEX) 0.005 % cream APPLY bid TO ECZEMA 5 Active calcium carbonate (OS-FLORIDA) 1,250 mg (500 mg elemental calcium) tablet Take 4 tablets (5,000 mg total) by mouth. 2 Active cholecalciferol (VITAMIN D-3) 25 mcg (1,000 unit) capsule Take 1 capsule (1,000 Units total) by mouth. 3 Active cyclobenzaprine (FLEXERIL) 10 mg tablet Take 1 tablet (10 mg total) by mouth 1 (one) time each day. 3 Active diclofenac (VOLTAREN) 1 % topical gel Apply 5 g topically. 3 Active estradioL (ESTRACE) 0.01 % (0.1 mg/gram) vaginal cream Insert 1 g into the vagina. Active fluticasone propionate (FLONASE) 50 mcg/actuation nasal spray Apply 1-2 sprays in each nostril QD PRN congestion 1 Active triamcinolone (KENALOG) 0.1 % ointment APPLY TOPICALLY TWICE A DAY NEEDED 4 Active atorvastatin (LIPITOR) 10 mg tablet TAKE 1 TABLET BY MOUTH 1 TIME EACH DAY. 90 tablet 1 5 Active losartan (COZAAR) 25 mg tablet TAKE 1 TABLET BY MOUTH EVERYDAY AT BEDTIME 90 tablet 1 5 Active tolterodine (DETROL) 2 mg tablet Take 1 tablet (2 mg total) by mouth 2 (two) times a day. 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 Ocular migraine 12/13/2020 Overview (01/28/2024): Follows with neurologyOswaldo, on a yearly basis. Advised to continue Topamax 25 mg daily. Prediabetes 04/19/2020 Hyperlipidemia 02/18/2014 Overview (01/28/2024): Total cholesterol 209, triglycerides 206, 08/07/2013 Bladder prolapse, female, acquired 08/01/2012 Diastolic dysfunction 06/17/2012 Overview (01/28/2024): Noted from dictation of Dr. Hough on 12/09/2008. Hearing loss 03/16/2006 Overview (01/28/2024): IMO update Hyperthyroidism 03/16/2006 Allergic rhinitis 03/08/2005 Carpal tunnel syndrome 03/08/2005 Other psoriasis 03/08/2005 Encounters Date Type Department Care Team Description 04/28/2025 8:05 AM EST Lab Draw [address] Prediabetes; Primary hypertension; Encounter for long-term (current) use of medications; Pure hypercholesterolemia 04/28/2025 Results Follow-Up [address] [phone] Sterling Templeton MD 04/21/2025 1:00 PM EST Office Visit [address] [phone] Sterling Templeton MD Primary hypertension (Primary Dx); Pure hypercholesterolemia; Prediabetes; Encounter for long-term (current) use of medications; Multiple cerebral infarctions (CMS/HCC V24, CMS/HCC V28); MCI (mild cognitive impairment) 03/16/2025 Results Follow-Up Walk-In [address] [phone] Cameron Best NP 03/15/2025 1:00 PM EST Office Visit Walk-In [address] [phone] José Miguel Santillan PA Urinary urgency (Primary Dx); Urinary frequency 03/14/2025 Telephone Adult Medicine [address] [phone] Sterling Templeton MD 03/13/2025 Telephone Walk-In [address] [phone] Cameron Best NP 03/13/2025 Telephone Walk-In [address] [phone] Tami Mortensen NP 03/10/2025 2:00 PM EST Office Visit Walk-In Clinic - [address] [phone] Tami Mortensen NP Dysuria (Primary Dx); Acute cystitis without hematuria 03/10/2025 Telephone Walk-In Clinic - [address] [phone] Tami Mortensen NP 03/10/2025 Nurse Triage Adult Medicine [address] [phone] Sterling Templeton MD from Last 3 Months Immunizations Immunization Administration Dates Next Due H1N1 Inj Preservative Free 04/12/2009 Hepatitis B (Qpukzru-P-Pqzmn , Recombivax HB-Adult) 19yo and older 08/18/2002,03/26/2002,02/19/2002 Influenza trivalent, 0.5mL ( Fluad) 65yo and older 02/10/2023,01/04/2022,02/09/2021,01/21,01/24/2019,01/20/2018,01/21/2017 ,01/27/2016,01/14/2015 Influenza trivalent, 0.5mL, preservative free (Fluarix; FluLaval; Fluzone) ages 6mo and older (Afluria) 3 years and older 02/18/2014,02/27/2013,04/15/2012,02/03,01/06/2010,01/20/2009,02/22/2008 ,02/13/2007,04/08/2006,03/06/2005 Moderna SARS-CoV-2 COVID-19, mRNA, LNP-S, preservative free 08/01/2021,02/18/2021 Pneumococcal conjugate 13 va lent (Prevnar 13, PCV13) 2mo and older 01/27/2016 Pneumococcal conjugate 20 va lent (Prevnar 20, PCV 20) 2mo and older 04/02/2023 Pneumococcal polysaccharide 23 valent (Pneumovax 23) 2yo and older 04/15/2012 Tdap Tetanus diptheria acell ular pertussis (Boostrix; Adacel) 7yo and older 08/07/2013 Zoster Live 07/22/2009 Zoster recombinant (Shingrix ) 19yo and older 02/09/2021,12/10/2020 Surgical History Surgery Date Site/Laterality Comments OTHER SURGICAL HISTORY PROCEDURE: OR HEMORRHOIDECTOMY NTRNL & XTRNL 1 COLUMN/GROUP STEREOTACTIC BREAST BIOPSY PROCEDURE: STEREOTACTIC BREAST BIOPSY TONSILLECTOMY 1958 PROCEDURE: HISTORICAL TONSILLECTOMY CHOLECYSTECTOMY PROCEDURE: HISTORICAL CHOLECYSTECTOMY; COMMENT: 11/09/2006 COLONOSCOPY 09/11/2002 PROCEDURE: HISTORICAL COLONOSCOPY; COMMENT: Dr. rFias; normal. COLONOSCOPY 09/10/2014 PROCEDURE: HISTORICAL COLONOSCOPY; COMMENT: normal OTHER SURGICAL HISTORY PROCEDURE: OR CLSR LACRIMAL PUNCTUM THERMOCAUT LIG/LASER; COMMENT: complicated by infection OTHER SURGICAL HISTORY PROCEDURE: OR UTERINE SUSPENSION W/WO SHORTENING LIGAMENTS SPX BREAST BIOPSY 10 years ago? PROCEDURE: BX BREAST; PERC NEEDLE CORE W/IMAG GUID; COMMENT: RT. BREAST CORE -BENIGN Medical History Medical History Date Comments Toxic diffuse goiter without mention of thyrotoxic crisis or storm DX:Toxic diffuse goiter without mention of thyrotoxic crisis or storm; COMMENT: treated medically Other psoriasis DX:Other psorias is Carpal tunnel syndrome DX:Carpal tunnel syndrome Allergic rhinitis, cause unspecified DX:Allergic rhinitis, cause unspecified Myalgia and myositis, unspecified 03/08/2005 DX:Myalgia and myositis, unspecified Psoriatic arthropathy (CMS/H CC V24, CMS/HCC V28) 03/16/2006 DX:Psoriatic arthropathy (HC C); COMMENT: questionable - mostly looks like OA Unspecified hearing loss 03/16/2006 DX:Unsp ecified hearing loss Bronchitis 01/29/2008 DX:Bronchitis Mild asthma DX:Mild asthma; COMMENT: uses Flovent occasionally Unspecified hearing loss 03/16/2006 DX:Unsp ecified hearing loss Other psoriasis 03/08/2005 DX:Other psorias is Hyperthyroidism 03/16/2006 DX:Hyperthyroidi sm Hyperlipidemia 02/18/2014 DX:Hyperlipidemi a; COMMENT: Total cholesterol 209, triglycerides 206, 08/07/2013 Hx of colonoscopy 09/10/2014 DX:Hx of colon oscopy; COMMENT: Sensitive to colonic manipulation and hypersensitive to Versed. Consider monitored anesthesia care for endoscopic procedures. Myalgia and myositis, unspecified 03/08/2005 DX:Myalgia and myositis, unspecified Diastolic dysfunction 06/17/2012 DX:Diastol ic dysfunction; COMMENT: Noted from dictation of Dr. Hough on 12/09/2008. Cystocele 08/01/2012 DX:Cystocele Plantar fasciitis DX:Plantar fas ciitis Family History Medical History Relation Name Comments Heart attack Father coronary thromb osis Glaucoma Mother Parkinson's per nicious anemia, 2013 Parkinson's Disease Mother Asthma Sister 1 69 Breast cancer Sister 1 69 COPD Sister 1 69 Diabetes Sister 1 69 Hypertension Sister 2 Other: Idiopathic Pulmonary Fibrosis Sister 2 Relation Name Status Comments Brother Alive Daughter Alive Father Maternal Grandfather Maternal Grandmother Mother Paternal Grandfather Paternal Grandmother Sister 1 69 Alive Sister 2 Son 1 Alive Son 2 Alive Social History Tobacco Use Types Packs/Day Years Used Date Smoking Tobacco: Never Smokeless Tobacco: Never Tobacco Cessation:Counseling Given: Not Answered Alcohol Use Standard Drinks/Week Comments Yes 0 [...] for your loved ones. For example, child care attendant school or elderly care for an older adult? [...] on file Sexual Orientation Not on file Obstetrics History Para Term AB IAB SAB Ectopic Multiple Livin g Live Births 3 3 3 3 Date Outcome GA Total Labor Labor/2nd/3rd Weight Sex Type Anes PTL Merle A1 A5 Name Clin Term Term Term Last Filed Vital Signs Vital Sign Reading Time Taken Comments Blood Pressure 154/80 04/21/2025 1:01 PM EST Pulse 81 04/21/2025 1:01 PM EST Temperature 36.6 C (97.9 F) 04/21/2025 12:48 PM EST Respiratory Rate 16 04/21/2025 12:48 PM EST Oxygen Saturation 98% 03/15/2025 12:59 PM EST Inhaled Oxygen Concentration - - Weight 81.6 kg (180 lb) 04/21/2025 12:48 PM EST Height 165.1 cm (5' 5 ) 04/21/2025 12:48 PM EST Body Mass Index 29.95 04/21/2025 12:48 PM EST Plan of Treatment Upcoming Encounters Date Type Department Care Team (Late st Contact Info) Description 05/14/2025 9:40 AM EST Appointment Radiology Department - [address] [phone] 05/28/2025 11:15 AM EST Appointment Bone Density - [address] [phone] 11/16/2025 9:45 AM EDT Office Visit Adult [facility] - [address] [phone] Sterling Templeton MD [address] [place], [place] Health Maintenance Due Date Last Done Comments Medicare Annual Wellness Visit 04/08/2022 COVID-19 Vaccine ( season) 2025 02/11/2025, 08/21/2024, 01/21/2024, Additional history exists Social Influencers of Health Screening 09/30/2025 09/30/2024 Falls Risk Assessment 04/21/2026 04/21/2025, 024 Hypertension/CHF/CAD Annual BMP Blood Test 04/28/2026 04/28/2025, 10/01/2024, 04/18/2024, Additional history exists Cholesterol Screening (Lipid Panel) 04/28/2030 04/28/2025, 10/01/2024, 04/18/2024, Additional history exists Osteoporosis Screening (Bone Density Screening) 01/18/2032 01/17/2022, 12/15/2019, 12/05/2016 DTaP,Tdap,and Td Vaccines (3 - Td or Tdap) 06/19/2034 06/19/2024, 08/07/2013 Hepatitis B Vaccines Completed 08/18/2002, 03/26/2002, 02/19/2002 Hepatitis C Screening Addressed 12/26/2005 Overri dden with the intention of not completing the topic Zoster Vaccines Completed 02/09/2021, 11/28, 07/22/2009, Additional history exists Pneumococcal Vaccine: 50+ Years Completed 04/02/2023, 01/27/2016, 04/15/2012 RSV Immunization Adult Patients Completed 04/14/2023 Depression Screening Completed 09/30/2024 Influenza Vaccine Completed 02/11/2025, , 02/10/2023, Additional history exists HIB Vaccines Aged Out No longer eligi ble based on patient's age to complete this topic HPV Vaccines Aged Out No longer eligi ble based on patient's age to complete this topic Hepatitis A Vaccines Aged Out No long er eligible based on patient's age to complete this topic IPV Vaccines Aged Out No longer eligi ble based on patient's age to complete this topic MMR Vaccines Aged Out No longer eligi ble based on patient's age to complete this topic Meningococcal ACWY Vaccine Aged Out N o longer eligible based on patient's age to complete this topic Meningococcal B Vaccine Aged Out No l onger eligible based on patient's age to complete this topic RSV Immunization Patients Under 20 months Aged Out No longer eligible based on patient's age to complete this topic Varicella Vaccines Aged Out No longer eligible based on patient's age to complete this topic Procedures Procedure Name Priority Date/Time Associated Diagnosis Comments LIPID PANEL WITH REFLEX TO DIRECT LDL Routine 04/28/2025 8:14 AM EST Pure hypercholesterolemia COMPREHENSIVE METABOLIC PANEL Routine 04/28/2025 8:14 AM EST Primary hypertension Encounter for long-term (current) use of medications HEMOGLOBIN A1C Routine 04/28/2025 8:14 AM EST Prediabetes CULTURE URINE Routine 03/15/2025 3:36 PM EST Urinary urgency Urinary frequency POC URINE NON-AUTO W/O MICRO Routine 03/15/2025 2:24 PM EST Urinary urgency Urinary frequency POC URINE NON-AUTO W/O MICRO Routine 03/10/2025 4:57 PM EST Dysuria CULTURE URINE Routine 03/10/2025 4:57 PM EST Dysuria DXA BONE DENSITY STUDY 1+ SITS AXIAL SKEL Routine 01/17/2022 10:50 AM EDT Encounter for screening for osteoporosis from Last 3 Months or Most Recently Relevant to Health Maintenance Results * Lipid panel with reflex to direct LDL (04/28/2025 8:14 AM EST) Cholesterol 144 0 - 200 mg/dL 04/28/2025 11:14 AM EST [facility] Triglycerides 112 0 - 150 mg/dL 04/28/2025 11:14 AM EST [facility] HDL 59 >=40 mg/dL 04/28/2025 11:14 AM [facility] LDL Calculated 63 0 - 100 mg/dL 04/28/2025 11:14 AM [facility] Comment:Estimated LDL is [place] culated using the Friedewald equation: Total cholesterol - HDL cholesterol - (Triglycerides/5) VLDL Cholesterol [place] 22.4 mg/dL 04/28/2025 11:14 AM [facility] Non HDL Chol. (LDL+VLDL) 85 <145 mg/dL 04/28/2025 11:14 AM [facility] Chol/HDL Ratio 2.4 0.0 - 4.4 04/28/2025 11:14 AM [facility] Blood Venous blood specimen / Unknown Venipuncture / Unknown 04/28/2025 8:14 AM EST 04/28/2025 8:14 AM EST us Sterling Templeton MD LAB BLOOD ORDERABLES Final Resu lt [facility] [address] [place] [address], * Hemoglobin A1c (04/28/2025 8:14 AM EST) Hemoglobin A1C 6.2 <6.5 % LAB CHEMISTRY METHOD 04/28/2025 11:59 AM EST [facility] Mean Bld Glu Estim. 131 mg/dL LAB CHEMISTRY METHOD 04/28/2025 11:59 AM [facility] Blood Venous blood specimen / Unknown Venipuncture / Unknown 04/28/2025 8:14 AM EST 04/28/2025 8:14 AM EST us Sterling Templeton MD LAB BLOOD ORDERABLES Final Resu lt [facility] [address] [place] [address], * Comprehensive metabolic panel (04/28/2025 8:14 AM EST) Sodium 143 133 - 145 mmol/L 04/28/2025 11:14 AM [facility] Potassium 4.1 3.5 - 5.5 mmol/L 04/28/2025 11:14 AM [facility] Chloride 102 96 - 110 mmol/L 04/28/2025 11:14 AM [facility] CO2 31 21 - 32 mmol/L 04/28/2025 11:14 AM [facility] Anion Gap 10 3 - 11 04/28/2025 11:14 AM [facility] Glucose 88 70 - 100 mg/dL 04/28/2025 11:14 AM [facility] BUN 13 5 - 25 mg/dL 04/28/2025 11:14 AM [facility] Creatinine 0.72 0.50 - 1.10 mg/dL 04/28/2025 11:14 AM [facility] eGFR 86 >=60 mL/min/1. 73m2 04/28/2025 11:14 AM [facility] Comment:Calculation based on the Chronic Kidney Disease Epidemiology Collaboration (CKD-EPI) equation refit without adjustment for race. BUN/Creatinine Ratio 18.1 04/28/2025 11:14 AM [facility] Calcium 9.1 8.5 - 10.5 mg/dL 04/28/2025 11:14 AM [facility] AST (SGOT) 27 10 - 42 unit/L 04/28/2025 11:14 AM [facility] ALT (SGPT) 34 10 - 60 unit/L 04/28/2025 11:14 AM [facility] Alkaline Phosphatase 87 42 - 121 unit/L 04/28/2025 11:14 AM [facility] Total Protein 7.2 6.0 - 8.0 g/dL 04/28/2025 11:14 AM [facility] Albumin 4.1 3.2 - 5.0 g/dL 04/28/2025 11:14 AM [facility] Total Bilirubin 0.4 0.0 - 1.4 mg/dL 04/28/2025 11:14 AM [facility] Blood Venous blood specimen / Unknown Venipuncture / Unknown 04/28/2025 8:14 AM EST 04/28/2025 8:14 AM EST us Sterling Templeton MD LAB BLOOD ORDERABLES Final Resu lt [facility] [address] [place] [address], * Culture urine (03/15/2025 3:36 PM EST) Only the most recent of2 resultswithin the time period is included. Culture, Urine <10,000 CFU/mL gram positive cocci, insignificant count, no further workup 03/16/2025 1:34 PM [facility] Urine Urine specimen obtained by clean catch procedure / Unknown Non-blood Collection / Unknown 03/15/2025 3:36 PM EST 03/15/2025 3:36 PM EST us José Miguel JONES LAB MICROBIOLOGY - GENERAL ORDER ANNA MARIE Final Result [facility] [address] [place] [address], * (ABNORMAL) POC Urine Non-Auto W/O Micro (03/15/2025 2:24 PM EST) Only the most recent of2 resultswithin the time period is included. Glucose UA POC Negative Negative, Trace mg/dL Leukocytes UA POC 2+(A) Negative Nitrite UA POC Negative Negative Urobilinogen UA POC 0.2 E.U./dL 0.2 E.U./dL, 1.0 E.U./dL, 8 , Unable to interpret due to interfering substances mg/dL Protein UA POC Negative Negative mg/dL PH UA POC 5.0 Blood UA POC 2+(A) Negative Specific [place] UA POC 1.020 Ketones UA POC Negative Negative Bilirubin UA POC Negative Negative Appearance UA POC Clear Clear Color UA POC Yellow Light Yellow, Yellow, Dark Yellow Urine Urine specimen obtained by clean catch procedure / Unknown 03/15/2025 2:24 PM EST us José Miguel JONES POINT OF CARE TEST ENTER/EDIT OR DERABLES Final Result * DXA BONE DENSITY STUDY 1+ SITS AXIAL SKEL (01/17/2022 10:50 AM EDT) Anatomical Region Laterality Modality Bone Densitometr y 11/23/2021 11:2 7 AM EDT Narrative 01/18/2022 6:12 PM EDT BONE DENSITY Lumbar Spine T-score is -1.6 (SD relative to 20-29 y/o adult) Z-score is +0.8 (SD relative to age matched peers) This is consistent with osteopenia by criteria defined by the WHO. Left Hip T-score is -1.9 Z-score is +0.1 This is consistent with osteopenia by criteria defined by the WHO. Comparison exam(s): no statistically significant change in the bone density of the hip and lumbar spine when compared to most recent bone density examination Confidence level is +/-95%. Impression: Based on the World Health Organization criteria, Dana Ga should be classified as having osteopenia. This patient has a 12% risk of major osteoporotic fracture and a 2.9% risk of hip fracture over the next 10 years. (World Health Organization Fracture Risk Assessment) [facility] Department of Internal Medicine recommends using National Osteoporosis Foundation (NOF) guidelines in treatment decisions related to osteoporosis. NOF guidelines suggest considering treatment for postmenopausal women and men aged 50 or older presenting with the following: History of hip or vertebral fracture. T-score less than or equal to -2.5 (DXA) at the femoral neck, total hip, or spine, after appropriate evaluation to exclude secondary causes. Low bone mass (T-score between -1.0 and -2.5 at the femoral neck or spine) AND a 10-year probability of a hip fracture greater than or equal to 3% OR a 10-year probability of a major osteoporosis-related fracture greater than or equal to 20% based on the [place]-adapted WHO algorithm Please note that all treatment decisions require clinical judgment and consideration of individual patient factors, including patient preferences, co-morbidities, previous drug use, risk factors not captured in the FRAX model (e.g., frailty, falls, vitamin D deficiency, increased bone turnover, interval significant decline in bone density) and possible under- or over-estimation of fracture risk by FRAX. Procedure Note Cassandra Delacruz MD - 04/18/2022 BONE DENSITY Lumbar Spine T-score is -1.6 (SD relative to 20-29 y/o adult) Z-score is +0.8 (SD relative to age matched peers) This is consistent with osteopenia by criteria defined by the WHO. Left Hip T-score is -1.9 Z-score is +0.1 This is consistent with osteopenia by criteria defined by the WHO. Comparison exam(s): no statistically significant change in the bonedensity of the hip and lumbar spine when compared to most recent bonedensity examination Confidence level is +/-95%. Impression: Based on the World Health Organization criteria, Dana Ga shouldbe classified as having osteopenia. This patient has a 12% risk of majorosteoporotic fracture and a 2.9% risk of hip fracture over the next 10years. (World Health Organization Fracture Risk Assessment) [facility] Department of Internal Medicine recommendsusing National Osteoporosis Foundation (NOF) guidelines in treatmentdecisions related to osteoporosis. NOF guidelines suggest consideringtreatment for postmenopausal women and men aged 50 or older presentingwith the following: History of hip or vertebral fracture. T-score less than or equal to -2.5 (DXA) at the femoral neck, total hip,or spine, after appropriate evaluation to exclude secondary causes. Low bone mass (T-score between -1.0 and -2.5 at the femoral neck or spine)AND a 10-year probability of a hip fracture greater than or equal to 3% ORa 10-year probability of a major osteoporosis-related fracture greaterthan or equal to 20% based on the [place]-adapted WHO algorithm Please note that all treatment decisions require clinical judgment andconsideration of individual patient factors, including patientpreferences, co-morbidities, previous drug use, risk factors not capturedin the FRAX model (e.g., frailty, falls, vitamin D deficiency, increasedbone turnover, interval significant decline in bone density) and possibleunder- or over-estimation of fracture risk by FRAX. 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
--- OUTSIDE RECORDS SUMMARY | 2025-04-29 12:46 | XMS_ITS ---
[facility] Organization [facility] Care Team Organization Name Specialty Phone Email Start Date End Da te [facility] 03/07/2022 4
--- OUTSIDE RECORDS SUMMARY | 2025-04-29 12:46 | XMS_ITS | Encounter Summary ---
Author Organization [facility] Address [address] [place] [address] Care Team Providers Care Riveter Name Role Phone Sterling Templeton MD Primary Care Provider [phone] Encounter Details Date Type Department Care Team (Late st Contact Info) Description 03/16/2025 Results Follow-Up Walk-In Clinic - [facility] [address] [place] [phone] Cameron Best, MERRILL [address] [place] [address] Social History Tobacco Use Types Packs/Day Years [...] care for your loved ones. For example, children's author or elderly care for an older adult? [...] 9:40 AM EST Appointment Radiology Department - [address] [phone] 05/28/2025 11:15 AM EST Appointment Bone Density - [address] [phone] 11/16/2025 9:45 AM EDT Office Visit Adult [facility] South - [address] [phone] Sterling Templeton MD [address] [place], [place] documented as of this encounter Visit Diagnoses Not on filedocumented in this encounter Additional Health Concerns Assessment Noted Time PHQ-9 Depression Total Score: 0 10/01/19 25 1:24 PM EDT A fall risk assessment has been complete d for the patient 04/06/2024 11:31 AM EST documented as of this encounter Care Teams Riveter Relationship Specialty Start Date End Date Sterling Templeton MD [address] [place] [address] PCP - General Internal Medicine 10/28/19 documented as of this encounter
--- OUTSIDE RECORDS SUMMARY | 2025-04-29 12:46 | XMS_ITS | Patient Health Record ---
[facility] Organization [facility] [address] [facility] [place] [address] Care Team Providers Care Bottle Caser Name Role Phone Chip Templeton MD Primary Care Provider Unavailabl e Black, Juliette Unavailable [phone] Allergies Allergen (clinical drug ingredient) Drug/Non Drug Allergy documented on EMR Reaction Allergy Type Onset Date Status amoxicillin Amoxicillin diarrhea Drug Allergy Act julissa sulfamethoxazole / trimethoprim Bactrim diarrhea Drug Allergy Active cephalexin Cephalexin diarrhea Drug Allergy Activ e ciprofloxacin Cipro diarrhea Drug Allergy Act julissa Levaquin diarrhea Drug Allergy Active Jgnsc-Ybfwm-Iacxq yx-Pramoxine swelling Drug Allergy Active Midazolam Unknown Drug Allergy Active Adhesive itchy, redness Allergy Activ e Latex Latex itchy, redness Allergy Activ e Reason For Referral No Information Medications Medication SIG (Take, Route, Frequency, Duration) Notes Start Date End Date Status Atorvastatin Calcium 10 MG 1 tablet Oral ly Once a day; Duration: 30 day(s) Active Cyclobenzaprine HCl 10 MG 1 tablet at be dtime as needed Orally Once a day PRN Active Flomax Not-Taking Losartan Potassium 25 MG 1 tablet Orally Once a day Active Li Allergy Not- Taking Ketorolac Tromethamine Active Luxiq Not-Taking Noritate Not-Taking Topiramate 25 MG 1 tablet Orally Once a day; Duration: 30 day(s) Not-Taking ZyrTEC Allergy PRN Activ e MiraLax PRN Active Multivitamins as directed Orally Active Dovonex PRN Active Baby Aspirin Active Immunizations Vaccine Route Administration Date Status Comme nts COVID-19 Moderna Vaccine Unknown 02/18/2021 Administered First Dose:06/08/2020 Second Dose: 07/06/2020 Social History Tobacco Use: Social History Observation Description Date Details (start date - stop date) Never Smoker NA - NA Tobacco use other than smoking: Question Answer Notes Are you an other tobacco user? No Tobacco Control (Standard) Question Answer Notes Tobacco use: Nonsmoker Additional Findings: Tobacco non-user Current no nsmoker AUDIT-C (Standard) Question Answer Notes Did you have a drink containing alcohol in the p ast year? No Points 0 Interpretation Negative Problems Problem Type SNOMED Code ICD Code Onset Dates Problem Status W/U Status Risk Notes Problem Acquired hammer toe of right foot (7964840570243892) Other hammer toe(s) (acquired), right foot (M20.41) Active confirmed Acute problem, Stable (1=3) Problem Localized, primary osteoarthritis of the ankle and/or foot (519044847) Arthritis of joint of lesser toe, right (M19.071) Active confirmed Vital Signs Blood pressure diastolic 67 mm Hg 01/21/2025 Height 5ft in 01/21/2025 Blood pressure systolic 115 mm Hg 01/21/2025 Weight 177 lbs 01/21/2025 BMI 34.56 kg/m2 01/21/2025 Procedures Procedure Date Ordered Date Performed Result Body Sit e 97680-FXALFUV NAIL, 6 OR MORE 05/05/2024 N/A 80357-Dnal Destruction, 1-14 05/05/2024 N/A 46161-SBHDEAP NAIL, 6 OR MORE 08/04/2024 N/A 76806-Ulbs Destruction, 1-14 08/04/2024 N/A 80529-PCQYFXH NAIL, 6 OR MORE 01/21/2025 N/A 61060-Lkct Destruction, 1-14 01/21/2025 N/A Encounters Encounter Location Date Provider Diagnosis [facility] [address] [address] 05/05/2024 Juliette Black Other viral warts B07.8 ; Tinea unguium B35.1 ; Pain in left foot M79.672 ; Pain in right toe(s) M79.674 and Pain in left toe(s) M79.675 [facility] [address] [place] [address] 08/04/2024 Juliette Welsh Other viral warts B07.8 ; Tinea unguium B35.1 ; Pain in left foot M79.672 ; Pain in right toe(s) M79.674 ; Pain in left toe(s) M79.675 ; Other hammer toe(s) (acquired), right foot M20.41 and Arthritis of joint of lesser toe, right M19.[address] [facility] [address] 01/21/2025 Juliette Welsh Other viral warts B07.8 ; Tinea unguium B35.1 ; Pain in left foot M79.672 ; Pain in right toe(s) M79.674 ; Pain in left toe(s) M79.675 ; Other hammer toe(s) (acquired), right foot M20.41 and Arthritis of joint of lesser toe, right M19.071 [facility] [address] 10/22/2024 Juliette Welsh [address] [address] 11/19/2024 Juliette Welsh Assessments Encounter Date Diagnosis (ICD Code) Assessment Notes Treatment Notes Treatment Clinical Notes Section Notes 05/05/2024 Other viral warts (ICD-10 - B07.8) 08/04/2024 Other viral warts (ICD-10 - B07.8) 08/04/2024 Tinea unguium (ICD-10 - B35.1) 01/21/2025 Other viral warts (ICD-10 - B07.8) 01/21/2025 Tinea unguium (ICD-10 - B35.1) 05/05/2024 Tinea unguium (ICD-10 - B35.1) 08/04/2024 Pain in left foot (ICD-10 - M79.672) 01/21/2025 Pain in left foot (ICD-10 - M79.672) 05/05/2024 Pain in left foot (ICD-10 - M79.672) 01/21/2025 Pain in right toe(s) (ICD-10 - M79.674) 08/04/2024 Pain in right toe(s) (ICD-10 - M79.674) 08/04/2024 Pain in left toe(s) (ICD-10 - M79.675) 01/21/2025 Pain in left toe(s) (ICD-10 - M79.675) 05/05/2024 Pain in right toe(s) (ICD-10 - M79.674) 05/05/2024 Pain in left toe(s) (ICD-10 - M79.675) 01/21/2025 Other hammer toe(s) (acquired), right foot (ICD-10 - M20.41) Acute problem, Stable (1=3) 08/04/2024 Other hammer toe(s) (acquired), right foot (ICD-10 - M20.41) Acute problem, Uncomplicated (3) 08/04/2024 Arthritis of joint of lesser toe, right (ICD-10 - M19.071) 01/21/2025 Arthritis of joint of lesser toe, right (ICD-10 - M19.071) Plan Of Treatment Pending Test Test Name Order Date X ray : Foot, right 3V 01/13/2013 07801-QLTPWPI NAIL, 6 OR MORE 04/01/2013 80588-BFTALYV NAIL, 6 OR MORE 08/04/2013 02078-CQLSFTY NAIL, 6 OR MORE 12/04/2013 30124-IBCZEQR NAIL, 6 OR MORE 04/06/2014 32617-YNPIXTY NAIL, 6 OR MORE 08/03/2014 74329-PNSMFWV NAIL, 6 OR MORE 12/10/2014 58542-YHYSYFO NAIL, 6 OR MORE 04/12/2015 08499-KAWPVFS NAIL, 6 OR MORE 08/16/2015 49365-ANGWEQE NAIL, 6 OR MORE 06/05/2011 40153-GRXBVTS NAIL, 6 OR MORE 09/11/2011 07503-EBLRFPJ NAIL, 6 OR MORE 12/11/2011 81377-XRNPVNY NAIL, 6 OR MORE 03/18/2012 99596-JMQEOVQ NAIL, 6 OR MORE 06/27/2012 55050-ZOIDRRP NAIL, 6 OR MORE 10/10/2012 74116-CCPJTTG NAIL, 6 OR MORE 01/13/2013 87855-ADCWCSQ NAIL, 6 OR MORE 12/22/2015 66978-GMKCDQM NAIL, 6 OR MORE 04/12/2016 47217-BAWIBZC NAIL, 6 OR MORE 08/07/2016 56466-WZPUBDD NAIL, 6 OR MORE 12/07/2016 72573-LVDROAB NAIL, 6 OR MORE 04/05/2017 28969-OCQZSFM NAIL, 6 OR MORE 08/02/2017 56678-SMQKKPR NAIL, 6 OR MORE 11/22/2017 65503-DYKGSYO NAIL, 6 OR MORE 03/07/2018 60453-QIWGZLC NAIL, 6 OR MORE 06/06/2018 35653-HPVOOGQ NAIL, 6 OR MORE 10/03/2018 45937-ZEYUOJV NAIL, 6 OR MORE 02/17/2019 82293-DEHPJEN NAIL, 6 OR MORE 06/12/2019 68131-DPWZBZF NAIL, 6 OR MORE 10/09/2019 58455-DNZDGFG NAIL, 6 OR MORE 02/19/2020 53583-WVBPHDI NAIL, 6 OR MORE 06/21/2020 68668-HZVRGJF NAIL, 6 OR MORE 10/18/2020 19312-VTFIYVI NAIL, 6 OR MORE 01/17/2021 27242-CHKXUQC NAIL, 6 OR MORE 05/12/2021 65135-PUNIYXQ NAIL, 6 OR MORE 08/11/2021 92066-SKIFXVG NAIL, 6 OR MORE 11/17/2021 02129-LJBSAHE NAIL, 6 OR MORE 02/23/2022 88185-FFRDWDT NAIL, 6 OR MORE 06/08/2022 94203-DPHKHKF NAIL, 6 OR MORE 09/14/2022 41600-GANEDMD NAIL, 6 OR MORE 12/07/2022 67334-HOHLNYG NAIL, 6 OR MORE 03/15/2023 50456-SXOFIMJ NAIL, 6 OR MORE 06/28/2023 86690-UATXCUJ NAIL, 6 OR MORE 10/08/2023 45041-SHYFFMV NAIL, 6 OR MORE 01/21/2024 20472-VWUUCWG NAIL, 6 OR MORE 05/05/2024 15232-KNUSLXT NAIL, 6 OR MORE 08/04/2024 22102-AHMSHHQ NAIL, 6 OR MORE 01/21/2025 13617-Wzty Destruction, 01/21/2025 09642-Yaey Destruction, 05-1308/04/2024 59368-Aqqm Destruction, 05-1305/05/2024 57341-Ksqi Destruction, 05-1301/21/2024 89326-Jbth Destruction, 05-1310/08/2023 49241-Boet Destruction, 05-1306/28/2023 82644-Wham Destruction, 05-1303/15/2023 31457-Ewia Destruction, 05-1312/07/2022 80356-Udfb Destruction, 05-1309/14/2022 53491-Rpgf Destruction, 05-1306/08/2022 88397-Lhdg Destruction, 05-1302/23/2022 45846-Zlbz Destruction, 05-1308/11/2021 09843-Nzzk Destruction, 05-1311/17/2021 60323-Orwf Destruction, 05-1305/12/2021 93194-Jbtg Destruction, 05-1301/17/2021 21311-Nlhl Destruction, 05-1310/18/2020 80337-Pvxu Destruction, 05-1306/21/2020 14978-Sqed Destruction, 05-1302/19/2020 41774-Dmnc Destruction, 05-1310/09/2019 40594-Cilj Destruction, 05-1306/12/2019 46262-Ybun Destruction, 05-1312/07/2016 54344-Oxrm Destruction, 05-1302/17/2019 84709-Xqfd Destruction, 05-1310/03/2018 82680-Kual Destruction, 05-1306/06/2018 73926-Noex Destruction, 05-1303/07/2018 85917-Hswo Destruction, 05-1311/22/2017 15965-Nncf Destruction, 05-1308/02/2017 29231-Xxhy Destruction, 05-1304/05/2017 03613-Yvdw Destruction, 05-1308/07/2016 60427-Htvq Destruction, 05-1304/12/2016 80613-Lnqw Destruction, 05-1312/22/2015 50100-Topy Destruction, 05-1310/10/2012 82403-Xauu Destruction, 05-1306/27/2012 59622-Bzka Destruction, 05-1303/06/2011 35994-Oajm Destruction, 05-1303/18/2012 65243-Bfbg Destruction, 05-1312/11/2011 77847-Znyw Destruction, 05-1309/11/2011 28483-Atbo Destruction, 05-1306/05/2011 24289-Ceil Destruction, 05-1308/16/2015 88558-Ilfo Destruction, 05-1304/12/2015 37127-Wvkx Destruction, 05-1312/10/2014 09191-Onxc Destruction, 05-1308/03/2014 97844-Eqiu Destruction, 05-1304/06/2014 06467-Uezu Destruction, 05-1312/04/2013 90684-Oqqp Destruction, 05-1308/04/2013 65721-Uyii Destruction, 05-1304/01/2013 41935-Dnvgrjav Plate 12/07/2016 10416-Ooqprprd Plate 05/12/2021 60481- Debride <25 sq cm 08/11/2021 03201- Debride <25 sq cm 05/12/2021 25810- Debride <25 sq cm 11/17/2021 55271- Debride <25 sq cm 02/17/2019 88829- Debride <25 sq cm 12/04/2013 04492- Debride <25 sq cm 04/06/2014 45478- Debride <25 sq cm 12/10/2014 44822- Debride <25 sq cm 12/11/2011 21981- Debride <25 sq cm 03/18/2012 07952- Debride <25 sq cm 06/27/2012 41917- Debride <25 sq cm 10/10/2012 96592- Debride <25 sq cm 01/13/2013 Next Appt Details Provider Name:Juliette Welsh , 05/07/2025 09:00:00 AM, [address] [place], [address], Insurance Providers Payer Name Payer Address Payer Phone Subscriber Number Group Number Insured Name Patient Relationship to Insured Coverage Start Date Coverage End Date [facility] [address] [place] [address] [id number] Ifeoma Chakraborty Self - patient is the insured Medical (General) History Medical History History ICD Code thyroid disorder psoriasis measles fibromyalgia chicken pox headaches/migraines ear, eye, nose, throat problems, head in jury 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- lump behind leg 09/08/22 [facility]- Passed out and hit head on floor- concusion- neurologist- several strokes 04/12/2020 Patient went to [facility] for chest pa in. 04/27/2014
== END 2025-04-29 11:12 | disposition home or self-care (01) ==
LOC: HO.SH 11:11
PROVIDERS: Visit Provider Internal Medicine
DX: Z01.10 Encounter for examination of ears and hearing without abnormal findings (principal); H90.3 Sensorineural hearing loss, bilateral
CPT/HCPCS: 92552; 92556